=== PATIENT | male | born 1945 | race Caucasian/White ===

== ENCOUNTER 2023-06-11 13:25 | Outpatient (CLI) | payer MEDICARE, BC, SELFPAY ==
--- NOTE | 2023-06-11 13:15 | DI.RAD_ITS ---
Exam(s) XR KNEE RT 4V AP,LAT,KIKE,PAT EXAM: XR KNEE RT 4V AP,LAT,KKIE,PAT CLINICAL HISTORY: bilateral knee pain. TECHNIQUE: 2D digital imaging was performed of the right knee. Four views obtained. Merchant, AP, la teral and PA tunnel views were obtained. COMPARISON: CR XR KNEE LT 4V AP,LAT,KIKE,PAT from 06/11/2023 FINDINGS: BONES: No acute fracture is present. No bony destructive lesion is seen. JOINTS: There is marked narrowing of the patellofemoral joint. Osteophytes and subchondral cysts are also seen at the joint space. There is moderate narrowing of the medial femoral tibial joint. Ther e is a small joint effusion. SOFT TISSUE: Normal. IMPRESSION: Marked degenerative changes seen at the patellofemoral joint. DATA REPOSITORY: RADIATION DOSE DELIVERED:
--- NOTE | 2023-06-11 13:15 | DI.RAD_ITS ---
Exam(s) XR KNEE LT 4V AP,LAT,KIKE,PAT EXAM: XR KNEE LT 4V AP,LAT,KIKE,PAT CLINICAL HISTORY: bilateral knee pain. TECHNIQUE: 2D digital imaging was performed of the left knee. Four images were obtained. Merchant, AP, lateral and PA tunnel views were obtained. COMPARISON: No exams were available for comparison FINDINGS: BONES: No acute fracture is present. No bony destructive lesion is seen. JOINTS: There is moderate narrowing of the medial femoral tibial joint. There is calcium seen in the lateral femoral tibial joint consistent with chondrocalcinosis. There is marked narrowing of the pa tellofemoral joint. Osteophytes are seen in the knee predominantly involving the posterior patella a nd the lateral femoral tibial joint. There is a small joint effusion. SOFT TISSUE: Vascular calcifications are present. IMPRESSION: Marked osteoarthritis of the left knee. DATA REPOSITORY: RADIATION DOSE DELIVERED:
== END 2023-06-11 13:26 | disposition home or self-care (01) ==
LOC: DIORS 13:25
PROVIDERS: PCP Physician Assistant Medical; Referring Provider Physician Assistant Medical; Visit Provider Student in an Organized Health Care Education/Training Program
DX: M17.11 Unilateral primary osteoarthritis, right knee; M17.12 Unilateral primary osteoarthritis, left knee
CPT/HCPCS: 99204; 73564

== ENCOUNTER 2023-06-22 09:15 | Outpatient (CLI) | payer MEDICARE, BC, SELFPAY ==
--- NOTE | 2023-06-22 08:30 | DI.RAD_ITS ---
Exam(s) XR STANDING ALIGNMENT EXAM: XR STANDING ALIGNMENT CLINICAL HISTORY: PRE OP L TKA. TECHNIQUE: 2D digital imaging was performed. Standing AP views were performed from the pelvis throu gh the ankles. COMPARISON: CR XR KNEE RT 4V AP,LAT,KIKE,PAT from 06/11/2023 CR XR KNEE LT 4V AP,LAT,KIKE,PAT from 06/11/2023 FINDINGS: Exam is limited by under penetration. Bulb buckle projects over the left pelvis, partially obscuring the visualization of the left hip joint. BONES: No acute fracture is present. No bony destructive lesion is seen. Leg length discrepancy: No significant overall leg length discrepancy. JOINTS: Knees: Severe narrowing of the left medial femoral tibial joint space causing varus angulatio n. [id number] narrowing of the medial femoral tibial joint of the right knee. The ankle joints are unremarkable. The hip joints are unremarkable. SOFT TISSUE: Normal. IMPRESSION: Severe degenerative changes degenerative changes of the medial femoral tibial joint of the left knee. . No significant leg length discrepancy. DATA REPOSITORY: RADIATION DOSE DELIVERED:
== END 2023-06-22 09:16 | disposition home or self-care (01) ==
LOC: DIORS 06-25 15:59
PROVIDERS: PCP Physician Assistant Medical; Visit Provider Physician Assistant
DX: M17.12 Unilateral primary osteoarthritis, left knee (principal); Z01.818 Encounter for other preprocedural examination
CPT/HCPCS: 77073

== ENCOUNTER 2023-07-18 07:17 | Observation (INO) | payer MEDICARE, BC, SELFPAY ==
[2023-07-18] VITALS (16 sets, daily range): BP systolic 132–189; BP diastolic 48–86; PULSE 61–94; RESP 14–23; TEMP 36.3–36.9; O2SAT 90–97; BMI 42.0
[2023-07-18] MEDS: Lactated Ringers 1,000 ML 80 ML IV (07:48)
[2023-07-18] MEDS: Acetaminophen 500 MG TAB 1000 MG PO ×3 (07:49→20:25)
[2023-07-18] MEDS: Gabapentin 300 MG CAP PO ×2 (07:49→20:25)
[2023-07-18] MEDS: Celecoxib 200 MG CAP 400 MG PO (07:49)
--- NOTE | 2023-07-18 08:06 | W.ANESPRE ---
General Info Date of Service Date Performed: 07/18/23 Height: 5 ft 9 in Weight: 129.3 kg Body Mass Index (BMI): 42.0 Surgical Procedure: Operation Date: 07/18/23 09:25 Proposed Procedure Side Surgeon p Knee Total Arthroplasty, Cementless CR Left Chris Caceres MD Meds Allergies and Home Medications Allergies Allergy/AdvReac Type Severity Reaction Status Date / Time simvastatin Allergy Unknown Other (See Verified 07/18/23 07:16 Comment) droperidol Allergy Other (See Verified 07/18/23 07:16 Comment) haloperidol Allergy Itching Verified 07/18/23 07:16 Home Medication Medication Instructions Recorded ketoconazole 2 % topical cream 1 applic topical DAILY 11/23/21 omeprazole 20 mg capsule,delayed 20 mg PO DAILY 11/23/21 release amlodipine 10 mg tablet 10 mg PO DAILY 05/16/23 cetirizine 10 mg tablet 10 mg PO DAILY PRN 05/16/23 lisinopril 40 mg tablet 40 mg PO DAILY 05/16/23 mirabegron 25 mg tablet,extended 25 mg PO DAILY 05/16/23 release 24 hr (Myrbetriq) red yeast rice 600 mg capsule 1,200 mg PO DAILY 05/16/23 tamsulosin 0.4 mg capsule 0.4 mg PO DAILY 05/16/23 garlic 300 mg capsule 600 mg PO DAILY 06/06/23 metformin 1,000 mg tablet 500 mg PO DAILY 06/11/23 metoprolol succinate 50 mg 50 mg PO DAILY 06/11/23 tablet,extended release 24 hr potassium chloride 20 mEq 20 meq PO DAILY 06/11/23 tablet,extended release(part/cryst) loratadine 10 mg tablet 10 mg PO DAILY 06/22/23 metoprolol succinate 25 mg 25 mg PO DAILY 06/22/23 tablet,extended release 24 hr Current Visit Medications: Current Medications Generic Name Dose Route Start Last Admin Trade Name Freq PRN Reason Stop Dose Admin Acetaminophen 1,000 mg 07/18/23 06:00 07/18/23 07:49 Acetaminophen 500 Mg Tab PO 07/18/23 23:59 1,000 mg PREOP MACRINA Administration Celecoxib 400 mg 07/18/23 06:00 07/18/23 07:49 Celecoxib 200 Mg Cap PO 07/18/23 23:59 400 mg PREOP MACRINA Administration Gabapentin 300 mg 07/18/23 06:00 07/18/23 07:49 Gabapentin 300 Mg Cap PO 07/18/23 23:59 300 mg PREOP MACRINA Administration Ringer's Solution 1,000 mls @ 80 mls/hr 07/18/23 06:00 07/18/23 07:48 IV 07/18/23 23:59 80 mls/hr INFUSION MACRINA Administration Cefazolin Sodium 3,000 mg/ 100 mls @ 200 mls/hr 07/18/23 06:00 Sodium Chloride IVPB 07/18/23 23:59 PREOP MACRINA Tranexamic Acid/Sodium Chloride 1,000 mg in 100 mls @ 600 mls/hr 07/18/23 06:00 IVPB 07/18/23 23:59 PREOP MACRINA IV Miscellaneous Supplies 1 each 07/18/23 06:00 Iv Access IV 07/18/23 23:59 DIRECTED MACRINA Sodium Chloride 0 ml 07/18/23 06:00 Normal Saline Flush 10 Ml Syr IV 07/18/23 23:59 PRN PRN Sodium Chloride 0 ml 07/18/23 06:00 Normal Saline 10 Ml Vial IJ 07/18/23 23:59 DIRECTED PRN Sterile Water 0 ml 07/18/23 06:00 Water,Injection,Sterile 10 Ml Vial IJ 07/18/23 23:59 DIRECTED PRN PFSH Active Problems Active Problems: Problem Status Onset Code Localized osteoarthritis of left knee M17.12 Localized osteoarthritis of right knee M17.11 VELA (dyspnea on exertion) R06.09 Aortic regurgitation I35.1 Type 2 diabetes mellitus E11.9 Metabolic syndrome X E88.810 Lumbosacral radiculopathy M54.[address] elevation myocardial infarction (STEMI) I25.2 Heart murmur, systolic R01.1 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 states last time i got stuck in the back, nan been sick every since, i was down in [place], and i had encephalopathy, even though they told me it didn't do that, i think it had something to do with it Surgical History Surgical History H/O cataract extraction Tobacco Smoking/Tobacco Use Status: Former Tobacco Use Alcohol Alcohol Intake: current Alcohol intake frequency: a few times a month Substance Use Substance use: Never Substance use type: does not use Vital Signs and Lab Results Vital Signs Most Recent Vital Signs in EMR: Most Recent Vital Signs Temp Pulse Resp BP Pulse Ox 36.7 C 66 20 165/48 H 95 07/18/23 07:42 07/18/23 07:42 07/18/23 07:42 07/18/23 07:42 07/18/23 07:42 Point of Care Results Point of Care Results: Finger Stick Blood Glucose 125 07/18/23 07:37 Lab Results Blood Type / Crossmatch: No Data to Display Complete Blood Count: No Data to Display Complete Metabolic Panel: No Data to Display Liver Function Panel: No Data to Display Coagulation Panel: No Data to Display Cardiac Panel: No Data to Display Arterial Blood Gas: No Data to Display Venous Blood Gas: No Data to Display Pancreas Panel: No Data to Display Thyroid Panel: No Data to Display Infectious Disease: No Data to Display Blood Cultures: No Data to Display Toxicology Panel: No Data to Display Imaging and Studies Imaging and Studies Study information below may be from another EMR and interpreted by another provider. Please see original notes in EMR for more complete details. Echocardiogram Summary: 02/20/23: EF 65%, Mild to moderate AR. Anesthesia Assessment and Plan Anesthesia History Personal History: Other Family History: No Family History of Anesthesia Complications Exercise Tolerance Exercise Tolerance: Metabolic Equivalents>4 Pertinent Negatives Pertinent Negatives: No Symptoms of GERD, No Major Pulmonary Symptoms or Complaints and No History of CVA/TIA Cardiac & Pulmonary Exam Cardiac Exam: Normal S1/S2 Heart Sounds Pulmonary Exam: Clear Bilateral Breath Sounds Implantable Cardiac Device Does patient have a Pacemaker or an ICD?: No Airway Exam Known Difficult Airway: No Mallampati Class: 2 Mouth Opening: Normal (> 3cm) Thyromental Distance: Less than 3 cm Neck Range of Motion: Full ROM Neck Circumference: Normal Teeth Condition: Normal Dentition ASA Classification ASA Score: ASA 3 Emergency Case?: No NPO Status NPO Status: NPO Clears >2 hours, Solids >8 hours Anesthesia Plan Resuscitation Status: Full Code Anesthesia Technique: General Anesthesia Airway Planned: Endotracheal Tube Pain Management: Surgeon and patient request nerve block Monitors Used: Standard Monitors
[2023-07-18] MEDS: ceFAZolin 3,000 MG in Normal Saline 100 ML 200 MG IVPB (08:54)
[2023-07-18] MEDS: TRANEXAMIC ACID/SOD. CHL. 1,000 MG/100 ML BAG 600 MG IVPB (09:11)
--- NOTE | 2023-07-18 09:29 | W.ANESNERVE ---
Nerve Block Single Injection Procedure Date and Time Date Performed: 07/18/23 Procedure Start: 08:41 Location Where Procedure Performed Procedure Location: Day Surgery Unit Reason Performed: Postoperative Analgesia Requesting Provider: Dharmesh Dudley Timeout Performed Timeout Performed: Yes Monitoring Used ECG, Blood Pressure, SpO2 and See EMR for corresponding vital signs Sterility Sterility: Hand Hygiene, Surgical Cap, Surgical Mask, Sterile Gloves and Chlorhexidine Sedation Given During Procedure Sedation Given (Indicate Dose Given): No Sedation given Patient Mental Status Patient Mental Status: Awake Nerve Block 1st Nerve Block: Laterality: Left Block Type: Adductor Canal Ultrasound Image Saved?: Yes Needle / Catheter Used: 100mm SonoPlex II Local Anesthetic Bolus (Indicate Dose Given): Lidocaine used for local infiltration of skin, Injected in 3-5ml increments after negative blood aspiration and Bupivacaine 0.25% Dose:: 20ml Additives (Indicate Dose Given): None Ultrasound: Sterile probe cover and gel used Nerve Stimulator: Not Used Paresthesia: None Procedure Tolerated: No Complications and Patient tolerated well Procedure Outcome: Successful Performed By: Pino Giang
--- NOTE | 2023-07-18 10:49 | ROE_ITS ---
Date of service: 07/18/23 Time of Service: 09:20 Operative Note Operative Note DATE OF PROCEDURE: 07/18/23 PRE-OP DIAGNOSIS: Left Knee Osteoarthritis POST-OP DIAGNOSIS: same PROCEDURE: Left Total Knee Replacement SURGEON: Chris Caceres GRILL PREP COOK: Mellisa Schreiber ANESTHESIA TYPE: Spinal Refer to Anesthesia Record ESTIMATED BLOOD LOSS: 200 PATHOLOGY: none sent TOURNIQUET TIME: 0 COMPLICATIONS: None Patient was transported to: PACU Patient's condition: stable Implants: 1. Depuy Attune Cementless Cruciate Retaining Femoral Component, Size 8 2. Depuy Attune Cementless Fixed Bearing Tibial Component, Size 7 3. Depuy Attune 8x7 CR/FB Poly 4. Depuy Attune Patellar Component, Size 38 Indications: I have seen Jaleel in clinic for symptoms of knee arthritis, confirmed with radiographic findings. He has exhausted nonoperative methods and was having significant limitations in daily function and desired better function and less pain. I discussed the technical details of a knee replacement. I explained the risks of the procedure to include, but not limited to, bleeding, infection, pain, stiffness, fracture, damage to nerves and vessels, damage to muscles and tendons, loosening, need for repeat procedure, blood clot and cardiopulmonary demise. Despite these risks, Michael elected to proceed. Findings: There was significant signs of arthritis throughout the knee with dense synovitis and a large effusion. Procedure Description: Michael was greeted in the preoperative holding area where the correct side was identified and marked. The consent was reviewed with the patient and signed. The history and physical was updated. All questions were answered. Preoperative medications were administered: Acetaminophen 1000mg, Celebrex 400mg, and Gabapentin 300mg. An adductor canal block was then administered by the anesthesia team in the PACU. He was taken back to the operating room. A general anesthestic was then administered. The patient was placed into the supine position on the operating room table. A nonsterile tourniquet was placed high onto the leg but only used for cementing. Posts were placed for positioning during the procedure. All bony prominences were well padded. Prophylactic antibiotics in the form of Cefazolin were administered. 1g of Tranxemic Acid was given intravenously within 30 minutes of incision. The left leg was then prepped with Chloraprep and draped in a standard fashion with impervious stockinette. A second prep with Chloraprep was performed prior to application of Iodine impregnated skin protection. A timeout to confirm correct identity, side and site, procedure, allergies, anesthesia, and medical concerns was performed. With the knee in some flexion, a midline incision was made overlying the knee. Full thickness skin flaps were raised once the extensor mechanism was encountered. These were raised medially and laterally. Any bleeding was controlled with electrocautery. Once the extensor mechanism was fully exposed, a medial parapatellar arthrotomy was performed in a flexed position. All bleeding from the arthrotomy and the geniculate arteries was coagulated. A medial subperiosteal peel was performed with electrocautery to the midcoronal plane. The fat pad was removed while keeping the patellar tendon protected. The anterior distal femur synovium was removed for later visualization. The ACL and PCL were resected and the anterior horn of the lateral meniscus was transected. The knee was then flexed with the patella everted. Large osteophytes from the tibia were removed. Large osteophytes from the femur were removed. Using a step drill, and based on preoperative templating, the femoral canal was entered. This was done with a step drill without any difficulty. The intramedullary distal femoral cut guide was inserted, set to a 6 degree valgus cut and 9mm cut thickness. The distal femoral cut guide was then held in position and pinned. With the soft tissues protected, the distal cut was performed. This was passed over a few times to ensure a planar cut. I then turned attention to the tibia. The extramedullary guide was placed onto the leg. The distal aspect was slid medial to adjust for position of center of ankle and stay in line with shaft of the tibia. Approximately 3-5 degrees of posterior slope was kept in the proximal cutting guide. The center of the guide was aligned with the PCL. The stylus was used to assess cut thickness. The medial side, most involved side, was set for a 5mm cut, corresponding to 8mm laterally. This was then held in position and pinned into place with 2 additional pins and a cross pin for stability. The medial and lateral collateral ligaments were protected and the cut was performed. With this completed, it was assessed and noted to be of appropriate dimensions. The guide was removed. A spacer block was inserted and the knee was brought into extension. The 6mm spacer block provided full extens ion, without hyperextension and with stability of both the medial and lateral collateral ligaments was assessed. The pins from the femur and the tibia were then removed. The distal femur was then sized. The anterior stylus was placed onto the lateral ridge of the anterior femur. This indicated a size 8 femur. The external rotation of the guide was adjusted to 3 degrees to match the epicondyla r axis, perpendicular to [place]?s line. The 4-in-1 cutting guide was the placed. The posterior medial femur cut was evaluated and appeared of good thickness. The spacer block was inserted underneath the cutting guide and stability was confirmed in 90 degrees of flexion. An bipin wing was used to confirm appropriate position of the anterior cut to avoid notching. This cutting guide was ensured to be flush on the cut surface and then pinned into place with headed pins. While protecting the soft tissues, quad tendon, and collateral ligaments, the anterior and posterior cuts were performed with a saw. The central two pins were removed and the posterior and anterior chamfers were cut next. The notch-cutting guide was placed. This was pinned to lateralize the femoral component as much as possible while keeping it flush on the cut surface. This was then pinned into position. A reciprocating saw was used to make the notch cut. A rasp smoothed the cut surfaces. The medial and lateral menisci were removed. A trial femoral component was then inserted, impacted down to the cut surfaces, and the lug holes were drilled. A provisional trial tibial component was placed and the knee was brought through range of motion. The polyethylene was trialed until there was good flexion and extension with excellent stability to the medial and lateral collaterals. The patella was tracking without thumbs. A size 7mm polyethylene component provided the best range of motion and stability with less than 2mm gapping with medial and lateral stress and full extension without significant hyperextension. The tibial cut surface was fully exposed. The tibia was then sized as a 7. The tibia had been previously marked during trialing to correspond to the center of the tibial component to help with rotation. The trial was aligned to this mellisa, approximately rotated to the medial 1/3rd of the tibial tubercle. The trial was pinned into place. The tibia was prepared with a reamer and a keel punch and lug holes. The knee was then brought into extension and the patella was measured as 21mm. Using the patellar clamp and cut guide, this was resected to a flat surface with at least 13mm of thickness remaining. The size 38 patella fit the best. This was oriented and then clamped into position. The lugs were drilled. The trial components were removed. The final components were opened on the back table. The periosteal and capsular tissues, especially posteriorly, around the knee were then systematically injected with a periarticular cocktail consisting of 246mg of Ropivacaine, 0.5mg of Epinephrine, 0.08mg of Clonidine, and 30mg of Ketorolac, diluted to 100cc. On the back table, with the implants opened, the cement was mixed. One batch of high viscosity cement was prepared with vacuum assistance. After the cement was ready a small amount was placed on the cut surface of the patella and the patellar button was clamped into position and held. While the cement was hardening, the cementless knee components were placed. Starting with the tibial component, the tibia was subluxed anteriorly and the lug holes of the component were lined up. The tibia was then impacted with an impactor and mallet until the tibial component was in contact with the tibia. The final polyethylene component was inserted. Then, the femoral component was inserted. The lug holes were aligned and the component was impacted into position. The knee was irrigated with Surgiphor Betadine solution. This was allowed to sit in the knee for 3 minutes and then it was irrigated out with saline. After the cement had finally cured, approximately 15min, the clamp was removed from the patella and the knee was taken through range of motion. The patella had slight lateral tilt and therefore I performed a partial lateral capsule release allowing the patella to move slightly more medial. It was then tracking with a no-thumbs technique. The capsule was then reapproximated with a No. 1 Vicryl at multiple locations. The capsule was finally closed with a No. 2 Stratafix, barbed suture. The second dosing of 1g TXA was started. Deep tissues were then reapproximated with 0 Vicryl and 2-0 Vicryl. The skin was closed with a running 3-0 Monocryl in a subcuticular fashion. This was reinforced with skin glue. A Mepilex silver dressing was applied along with a [id number] MARÍA wrap. A CryoCuff was applied. Michael was transferred to the hospital bed without difficulty an suffering no apparent complication. Michael has a good prognosis. Physical therapy will start today and without restrictions, weight-bearing as tolerated. Aspirin 81mg BID will be used for DVT prophylaxis.
[2023-07-18] MEDS: fentaNYL 100 MCG/2 ML VIAL IVP (11:40)
--- NOTE | 2023-07-18 13:39 | IN_ITS ---
PT Notes Visit Reasons: OA L Knee Physical Therapy Inpatient Initial Evaluation Date: 07/18/2023 Referring Doctor: KERON Montes De Oca PT Orders: PT CONSULT: S/P Ortho Surgery Precautions: Fall. Standard. WBAT on the L LE with AD per Dr. Caceres. Patient Profile/Admitting Diagnosis: Patient is an 78-year-old male patient with degenerative joint disease of B knees and is S/P Left total knee arthroplasty on postoperative day 0. PMHX: Medical History Erectile dysfunction Bradycardia Surgical History H/O cataract extraction Social History/Home Situation: Lives alone in a private home with 4 steps to enter with rails on both sides. Modified independent with use of 5 wheeled walker for all mobility ADL performance prior to surgery. Equipment Owned/DME: [employer] Subjective: Reports 1/10 pain in the L knee at rest, some pain about 3-4/10 with weight bearing. Denied headache, chest pain, and lightheadedness throughout session. A little concerned that he has not had lunch but Nurse Payton came in to bring patient a sandwich. [facility] [place] [facility] ordered lunch for patient too upon PT's request. Objective: General Observation: Oxygen saturation and on 2 L/min via NC. Quiana wraps to left LE. Cryocuuff to left knee. TEDS to leg. Mental Status: Alert and oriented as to person, place, time, and purpose. Able to pay attention, focus, and respond appropriately. Pain: As above Vital Signs: 164/74 mmHg, 68 bpm, 95% on 2 L/min ROM: Right Lower Extremity: Hip flexion WFL. Hip abduction WFL. Knee flexion 20 degrees to 90 degrees. Ankle dorsiflexion to neutral only. Ankle plantarflexion WFL. Left Lower Extremity: Hip flexion WFL. Hip abduction WFL. Knee flexion 30 degrees to 90 degress. nkle dorsiflexion to neutral only. Ankle plantarflexion WFL. Strength: Right Lower Extremity: Hip flexors 4-/5. Hip abductors 4-/5. Knee flexors 3-/5. Knee extensors 3-/5. Knee extensors 3?/5. Ankle dorsiflexors /5. Ankle plantarflexors []/5. Left Lower Extremity: Hip flexors 4-/5. Hip abductors 4-/5. Knee flexors 3-/5. Knee extensors 3-/5. Knee extensors 3?/5. Ankle dorsiflexors /5. Ankle plantarflexors []/5. Bed Mobility/Transfers: Minimal cueing provided for use of B hands as needed for support, movement sequence, AD management, and posture to reduce fall risk and minimize pain report Supine to sit minimal assist Sit to stand from high bed minimal assist with FWW Sit to stand from bedside commode/low surface moderate assist Stand to sit minimal assist with FWW Bed to bedside commode minimal assist with FWW Bedside commode to bed minimal assist with FWW Bed to reclining chair minimal assist with FWW Gait: 6 small steps from bedside to bedside commode and then 8 small steps from bedside commode to bedside recliner using FWW and moderate verbal cueing for limb advancement, safety technique, AD management, and posture to reduce fall risk and minimize pain report. Balance: Static Sitting: Normal Dynamic Sitting: Normal Static Standing: Fair Dynamic Standing: Fair Special Tests: Mobility Limitations Standardized Measure [facility] AM-PAC 6 clicks Basic Mobility Inpatient Short Form: Raw Score: 17 CMS Score: 51% deficit Informed Consent/Education: Patient was instructed in purpose of PT consult and plan of care. Agreeable to proceed with established PT POC to achieve personal goals. ASSESSMENT: Performed limited mobility assessment as patient was so hungry has not had lunch yet. Required minimal assistance with getting up from bed and moderate assistance from low bedside commode. Lives alone and may not have ready help with needed mobility tasks. May benefit from short-term rehab to regain highest mobility level prior to D/C to home. Patient presents with clinical signs and symptoms consistent with current/admitting diagnoses that have resulted to mobility limitations, gait instability, generalized weakness, and overall ADL decline as demonstrated by the following impairment level findings: 1. Decreased strength to L/R knee major muscle groups 2. Impaired sitting/standing balance 3. Impaired activity tolerance 4. Limitation of joint range of motion in L/R knee 5. High BMI Impairments are contributing to the following functional limitations: 1. Decline in bed mobility skills 2. Decline in transfer skills 3. Difficulty with ambulation without assistive device and physical assistance 4. Increased completion time for mobility ADL performance 5. Increased risk for falls 6. Difficulty with managing steps alone safely Patient is assessed as a 38536 moderate complexity based on the following: History: 78-year-old male with past medical history as indicated above Examination: Demonstrable impairment in strength, balance, and mobility level with underlying impairments and functional limitations as exhibited above as well as deficit score of 51% utilizing the [facility] Mobility Inpatient Short Form Presentation: Evolving Decision Makin moderate complexity Goals: Goals X1 week 1. Supine-Sit independent 2. Sit-Supine independent 3. Sit-Stand independent 4. Stand-Sit independent with FWW 5. Bed-Chair independent with FWW 6. Chair-Bed independent with FWW 7. Independent gait on level surface with use of FWW for at least 300 feet without report of pain nor dyspnea 8. Independent stair negotiation while holding onto B rails for at least 5 steps without report of pain nor dyspnea 9. Independent with home exercise program 10. Good static and dynamic standing balance/tolerance Plan of Care/Treatment Plan: 1-2x/day, 7 days/week x 1 week. Plan of care has been reviewed with the [employer] providing the service under Physical Therapy direction. Initiate Physical Therapy intervention for pain management as needed, strengthening, bed mobility, transfers, gait, stairs, balance training, and use of assistive device. DISCHARGE RECOMMENDATIONS: [] Home with no services [] [] Home with services [specify] [] Home with outpatient PT [] [] SNF for continued rehabilitation [] [] [facility] [] [] SNF versus LTC based on ability to participate and progress [] [X] Short-term rehab vs. PT based on availability of caregiver at home and on progress towards goals TREATMENT CODE/TIME: 90533 x 20 minutes for 1 unit, 56365 x 30 minutes for 2 units (13:39-14:29). Thank you for the opportunity to participate in the care of this patient. Cinthia Johns PT, DPT, CLT [facility] [place], [place]
[2023-07-18] MEDS: ceFAZolin 1 GM/50 ML BAG IVPB ×2 (14:32→23:45)
--- NOTE | 2023-07-18 14:32 | W.ANESPOSTOP ---
Postoperative Evaluation Date, Time and Location Date Performed: 07/18/23 Time Performed: 14:32 Patient Location: Med/Surg Vital Signs Most Recent Imported Vital Signs: Most Recent Vital Signs Temp Pulse Resp BP Pulse Ox 36.7 C 68 16 164/74 H 95 07/18/23 13:35 07/18/23 13:35 07/18/23 13:35 07/18/23 13:35 07/18/23 13:35 Pain Score Most Recent Pain Score: Most Recent Pain Score Pain Level 4 07/18/23 13:35 Assessment Mental Status: Awake (Alert & Oriented to Patient Baseline) Airway and Respiratory Function: Patent airway with normal (patient baseline) respiratory exam Cardiovascular Function: Hemodynamically Stable Hydration Status: Adequately Hydrated Nausea & Vomiting: No Nausea or Vomiting Pain: Pain is tolerable per patient Peripheral Nerve Block: Regional nerve block not resolved at time of post operative discharge
[2023-07-18] MEDS: Normal Saline Flush 10 ML SYR IV (14:47)
[2023-07-18] MEDS: Insulin Aspart 300 UNITS/3 ML PEN SC (16:41)
[2023-07-18] MEDS: Normal Saline Flush 10 ML SYR (17:31)
[2023-07-18] MEDS: Celecoxib 200 MG CAP PO (20:25)
[2023-07-18] MEDS: Aspirin E.C. 81 MG TABEC PO (20:26)
[2023-07-19 00:30] VITALS: BP 126/48; PULSE 57; RESP 20; TEMP 37.7; O2SAT 95
[2023-07-19 04:32] VITALS: BP 139/54; PULSE 62; RESP 18; TEMP 37.5; O2SAT 93
[2023-07-19] MEDS: ceFAZolin 1 GM/50 ML BAG IVPB (06:31)
[2023-07-19 07:26] VITALS: BP 131/59; PULSE 65; RESP 17; TEMP 37.1; O2SAT 93
[2023-07-19] MEDS: Acetaminophen 500 MG TAB 1000 MG PO ×2 (08:20→13:42)
[2023-07-19] MEDS: amLODIPine 10 MG TAB PO (08:20)
[2023-07-19] MEDS: Mirabegron 25 MG TABCR PO (08:20)
[2023-07-19] MEDS: Omeprazole 20 MG CAPCR PO (08:21)
[2023-07-19] MEDS: Lisinopril 20 MG TAB 40 MG PO (08:21)
[2023-07-19] MEDS: Tamsulosin 0.4 MG CAPCR PO (08:21)
[2023-07-19] MEDS: Dexamethasone 4 MG TAB PO (08:22)
[2023-07-19] MEDS: Metoprolol CR 25 MG TABCR 75 MG PO (08:22)
[2023-07-19] MEDS: Aspirin E.C. 81 MG TABEC PO (08:22)
[2023-07-19] MEDS: Normal Saline Flush 10 ML SYR IVP (08:23)
[2023-07-19] MEDS: Loratidine 10 MG TAB PO (08:23)
[2023-07-19] MEDS: Celecoxib 200 MG CAP PO (08:23)
[2023-07-19] MEDS: Insulin Aspart 300 UNITS/3 ML PEN SC ×2 (08:24→12:27)
--- NOTE | 2023-07-19 09:19 | PT.INTREAT ---
PT Notes Visit Reasons: OA L Knee Date: 07/19/23 PRECAUTIONS: Fall. Standard. WBAT on the L LE with AD per Dr. Caceres. SUBJECTIVE: Pt in bed when approached for therapy this morning, pt agreed to participating with therapy. reports he wants to go home this afternoon. OBJECTIVE: ? PAIN: none VITALS: monitored by nursing Therapeutic Activities 56971: Direct one-on-one instruction in dynamic activities to improve functional performance. ?? BED MOBILITY/TRANSFERS? Rolling L/R: independent Supine-sit: ? independent? Sit-supine: ? independent? Sit-stand: ? Supervision? Stand-sit: ??Supervision ? Bed-Chair:? ?Supervision ? Chair-bed: Supervision Provided skilled cues and instruction on performance and technique throughout. Gait Training 92905: Direct one-on-one instruction and skilled instruction in: Employing an assistive device Modified weight-bearing status Movement sequencing Turning and movement with proper form Provided verbal cues for equipment management and technique Provided instruction in gait pattern Patient education regarding pacing and breathing techniques to maximize activity tolerance? GAIT? Assistive Device: ?FWW ? Weight bearing: WBAT LLE Assist: ? SBA ? Distance:?? 150'x2? Deviation: ?Antalgic ? STAIRS:? ? Step over gait pattern, bilateral handrail 6 steps x4, 4steps x6 SBA ? Therapeutic Exercises 73350: Direct one-on-one instruction in therapeutic exercises to develop strength, endurance, range of motion and flexibility. Exercises: Pt provided copy for HEP for guidance with exercises at home, pt able to complete HEP as per copy. Provided skilled instruction in proper exercise performance Provided skilled manual cues to facilitate proper muscle recruitment and/or form: ASSESSMENT:?pt able to ambulate without pain on level surface as well as on stairs, pt will be provided with FWW from ortho care for safety at home. PLAN: Continue with balance training, global strengthening and general conditioning for improved safety, mobility and activity tolerance until pt is ready for DC. TREATMENT CODE/TIME: 78989s2, 47310w5, 25mins (8:55-9:20am)
--- NOTE | 2023-07-19 11:26 | PDOC.CMIN ---
Date of service: 07/19/23 Time of Service: 11:34 Care Management Initial Assmt Initial Assessment REASON FOR HOSPITALIZATION:: OA L Knee PREVIOUS FUNCTIONAL STATUS/SOCIAL/FAMILY SUPPORTS:: Jaleel lives in [place] with his , Calli. He has one living son, who lives about a mile away from him and is very supportive. He is independent with ADL's at baseline, and transports via RCT. CURRENT FUNCTIONAL STATUS:: Jaleel was sitting up in his chair when CM met with him. He stated that he is doing well and is expecting to be discharged home this afternoon. He reported that he walked with PT and practiced stairs, and feels comfortable returning home. Per RN, his pain is well managed. Jaleel's son called while CM was in the room visiting; he stated that he would require RCT transport home via private vehicle. CM called his pharmacy to inquire about medication delivery; [facility] in [place] stated that his medications will be delivered to him tomorrow morning. CM will continue to follow. ADVANCE DIRECTIVES:: Not on file. Has patient been provided with info about the portal/API?: Yes Did the patient sign up for the portal?: No INSURANCE COVERAGE / FINANCIAL ISSUES:: [facility]. B/C federal. CURRENT HOME/COMMUNITY SERVICES/EQUIPMENT:: No current services. [facility]. PRIMARY CARE PHYSICIAN:: Yumiko Ochoa POTENTIAL DISCHARGE NEEDS:: Evaluations for further needs, follow up appointments. PATIENT/FAMILY EDUCATION NEEDS:: Review discharge instructions and limitations, discussion of self care needs including ask me three. ANTICIPATED BARRIERS TO DISCHARGE:: None identified. TRANSPORTATION:: Via private vehicle by RCT PLAN:: Anticipate Jaleel will return home once medically cleared with new orders for HH PT. His will be driven him home via private vehicle by [facility], [facility] He will follow up with his PCP and discharge plan of care. CM will continue to follow. PFSH All Active Problems Localized osteoarthritis of left knee (Acute) Localized osteoarthritis of right knee (Acute) VELA (dyspnea on exertion) (Acute) Aortic regurgitation (Acute) Type 2 diabetes mellitus (Acute) Metabolic syndrome X (Acute) Lumbosacral radiculopathy (Acute) History of ST elevation myocardial infarction (STEMI) (Acute) Heart murmur, systolic (Acute) Disorder of anterior pituitary (Acute) Obesity (Chronic) Hypertension (Chronic) GERD (gastroesophageal reflux disease) (Chronic) Hypercholesterolemia (Acute) Sensorineural hearing loss of both ears (Acute) Medical History Erectile dysfunction Bradycardia Surgical History H/O cataract extraction Social History Smoking/Tobacco Use Status: Former Tobacco Use Quit Date: 04/02/69 Smoking risk assessment performed?: Yes Alcohol Intake: current Alcohol Intake frequency: a few times a month Drug use: Never Substance use type: does not use Housing: house Do you feel safe at home: Yes Do you feel safe in your relationship?: Yes SDOH(Care Management) Screening Will the Patient Participate in the Screening?: Declined to provide
[2023-07-19 11:36] VITALS: BP 126/51; PULSE 56; RESP 16; TEMP 36.4; O2SAT 95
--- NOTE | 2023-07-19 13:12 | DSE_ITS ---
Date of service: 07/19/23 Time of Service: 13:12 Discharge Plan Disposition Patient Disposition: Home W/Home Health Services Condition: Good Discharge Details Reason For Visit: OA L Knee Admit Date/Time: 07/18/23 07:17 Admit Provider: Chris Caceres Attending Provider: Chris Caceres Primary Care Provider: Yumiko Ochoa Hospital Course Hospital Course: Patient was admitted to the medical/surgical floor following the procedure. The surgery was tolerated well without any notable medical, surgical, or anesthetic complications. Mobilization began postoperatively. He was voiding spontaneous ly. Vitals were stable. Physical therapy worked with the patient and was cleared for discharge home. No acute medical issues. Pain was controlled on oral regimen. Home Meds and New Rx's Prescriptions: New celecoxib 200 mg capsule 200 mg PO BID PRN (Reason: pain) Qty: 60 1RF aspirin 81 mg tablet,delayed release (DR/EC) 81 mg PO BID Qty: 60 0RF acetaminophen 500 mg tablet 1,000 mg PO Q8H PRN (Reason: pain) Qty: 90 3RF gabapentin 300 mg capsule 300 mg PO QHS Qty: 14 0RF oxycodone 5 mg tablet 5 mg PO Q6H PRN (Reason: pain) Qty: 12 0RF Continued garlic 300 mg capsule 600 mg PO DAILY potassium chloride 20 mEq tablet,ER particles/crystals 20 meq PO DAILY metoprolol succinate 50 mg tablet extended release 24 hr 50 mg PO DAILY metoprolol succinate 25 mg tablet extended release 24 hr 25 mg PO DAILY loratadine 10 mg tablet 10 mg PO DAILY omeprazole 20 mg capsule,delayed release(DR/EC) 20 mg PO DAILY ketoconazole 2 % cream 1 applic topical DAILY amlodipine 10 mg tablet 10 mg PO DAILY cetirizine 10 mg tablet 10 mg PO DAILY PRN lisinopril 40 mg tablet 40 mg PO DAILY Myrbetriq 25 mg tablet extended release 24 hr 25 mg PO DAILY red yeast rice 600 mg capsule 1,200 mg PO DAILY Rx Instructions: give with meal/snack tamsulosin 0.4 mg capsule 0.4 mg PO DAILY metformin 1,000 mg tablet 500 mg PO DAILY Discharge Instructions Additional Instructions: Total Knee Discharge Instructions Activity: The most important activity is to walk and to work on gentle motion (both flexion and extension). You should try to take short walks a few times a day. It is important that when resting you work on keeping the knee straight. Avoid putting a pillow behind the knee as this will encourage flexion. Work on range of motion exercises as provided by Physical Therapy. - Start outpatient physical therapy within 2 weeks. - You should wear the AKANKSHA hose on both legs for 2 weeks. You may remove these at night. You may also use any compression sock in place of the AKANKSHA hose. - Utilize [employer] to review exercises, see videos on exercises and obtain basic information pertaining to your surgery and your recovery. Dressing: Remove the Durga wrap by 2 days after your surgery and put on the AKANKSHA stocking given to you from the hospital. Keep the surgical dressing (underneath the DURGA wrap) in place for at least one week. After the first week it may be removed and replaced with light gauze and tape or nothing. The wound and dressing may get wet after 3 days but avoid soaking the dressing or otherwise it will need to be changed. Many people prefer covering the dressing with cling wrap (saran wrap) to minimize it from getting soaked. If it gets wet, just pat dry. If it starts to peel off then it will need to be changed. Medications: - You should take Tylenol and anti-inflammatory Celebrex as your primary pain control medications. If the Celebrex is too expensive or not covered, please call the office for another alternative (Advil/Ibuprofen or Naproxen/Aleve) - You have been prescribed a stronger pain medication Oxycodone for breakthrough pain, take as needed as prescribed. - You will continue your stomach acid reduction agent Omeprazole to help reduce stomach acid and reflux. - You have been prescribed Gabapentin to take at night for restlessness and nerve pain. - You will be taking Aspirin 81mg twice a day for DVT prevention unless instructed otherwise. - If you have constipation you should take Colace or Miralax (both [id number]). It takes most people 3-4 days to have a bowel movement. Follow-up: 2 weeks If you have any acute concerns or questions, please do not hesitate to contact the office at [phone]. You may contact Dr. Caceres with any questions after hours through the hospital at [phone] or on his cell phone at [phone]. 1. Encounter Date and Reason I certify that Jaleel Espitia was seen by Chris Caceres MD on 07/19/23 and that I had a [id number] encounter with this patient that meets the physician face to face encounter requirements. 2. Clinical Findings Supporting Skilled Need and Homebound Status I certify that home health services are medically necessary, include either intermittent jail and/or physical/speech therapy, and that this patient is homebound in that absences from the home require considerable and taxing effort and are infrequent or of short duration, or are attributable to the need to receive medical care. [X] (a) Attached documentation from encounter provides clinical findings supporting skilled need and homebound status (including what assistance patient requires to leave the home). The encounter with the patient was in whole, or in part, for the following medical condition, which is the primary reason for home health care: OA L Knee Prison: Michael would benefit from nursing due to multiple medical comorbidities and new medications following knee replacement surgery. Physical Therapy: Michael would benefit from physical and occupational therapy due to recent knee replacement surgery with notable weakness and gait abnormality. He may weight bear as tolerated with assistive devices. No restrictions. Speech Therapy: Homebound: Michael is unable to leave his home unassisted due to weakness and gait disturbance. 3. Certification and Authentication I certify that I composed the above information based on my clinical judgement relating to this patient's medical condition and, if applicable, clinical findings communicated to me by the NPP or inpatient physician who performed the Home Health Referral. All further orders will be obtained through Dr. Caceres Stand Alone Forms: Anesthesia Discharge Inst., Anes.Nerve Block Instructions Equipment/Supplies: Walker Activity:: Activity as Tolerated Remove Dressings/Wound Care:: Do Not Remove Shower/Bathe:: 72 hours and Cover Activity:: Activity as Tolerated Equipment/Supplies:: Walker Diet:: Carb Counting Discharge Orders Discharge Orders: Discharge Order (Routine); Ordered 07/19/23 Ordered By: Chris Caceres DS: Summary Time Spent with Patient providing and/or coordinating discharge services: Less than 30 minutes Status at Discharge Functional status at discharge: uses cane/walker Overall status at discharge: patient is progressing back to baseline Mental Status: mental status grossly normal Speech and Movement: speech and movement normal Mood: congruent mood Affect: normal affect Quality:SDOH Health Related Social Needs: No Data to Display Exam Narrative Exam Narrative: Sitting up in the chair. No acute distress. Alert and x 3. Left lower extremity dressings clean dry and intact. He is able straight leg raise. Range of motion is approximate 10 to 85 degrees. Intact ankle dorsiflexion, plantarflexion, great toe extension and flexion. Sensation intact to light touch of the deep and superficial peroneal nerve and tibial nerve. CR < 2 sec. Psych Mental Status: mental status grossly normal Speech and Movement: speech and movement normal Mood: congruent mood Affect: normal affect DS: Data Vitals/I&O Vitals and I&O: Vital Signs Temperature 36.4 C L 07/19/23 11:36 Temperature Source Tympanic 07/19/23 11:36 Pulse 56 L 07/19/23 11:36 Pulse Rhythm Regular 07/19/23 08:30 Respiratory Rate 16 07/19/23 11:36 Respiratory Effort Normal, Non-Labored 07/19/23 08:30 Respiratory Depth Normal 07/19/23 08:30 Respiratory Pattern Normal 07/19/23 08:30 Blood Pressure 126/51 L 07/19/23 11:36 Blood Pressure Mean 99 07/18/23 08:29 Pulse Oximetry 95 07/19/23 11:36 Respiratory End-tidal CO2 35 07/18/23 11:55 Oxygen Delivery Method Room Air 07/19/23 11:36 Oxygen Flow Rate 0 07/19/23 11:36 Pain Level 0 07/19/23 11:36 Comment 0838 Time out with Pino MAHARAJ and Loni LEVIN 0839 Local given by Pino MAHARAJ 0842 First dose of block given 0843 procedure end Pt denies metallic taste or ringing of ears, Pt shows no signs of distress, no concerns noted at this time 07/18/23 08:29 Intake & Output 07/18/23 07/19/23 07/19/23 23:59 11:59 23:59 Intake Total 450 / 1250 290 / 290 Output Total 975 / 1175 1400 / 1400 Balance -525 / 75 -1110 / -1110 Weight 129.3 kg Intake: IV 450 / 1250 50 / 50 Oral 240 / 240 Output: Urine 975 / 975 1400 / 1400 Other: Urine Color Yellow Yellow Urine Appearance Clear Clear Urine Odor Strong Voiding Methods Urinal Urinal PFSH All Active Problems Localized osteoarthritis of left knee (Acute) Localized osteoarthritis of right knee (Acute) VELA (dyspnea on exertion) (Acute) Aortic regurgitation (Acute) Type 2 diabetes mellitus (Acute) Metabolic syndrome X (Acute) Lumbosacral radiculopathy (Acute) History of ST elevation myocardial infarction (STEMI) (Acute) Heart murmur, systolic (Acute) Disorder of anterior pituitary (Acute) Obesity (Chronic) Hypertension (Chronic) GERD (gastroesophageal reflux disease) (Chronic) Hypercholesterolemia (Acute) Sensorineural hearing loss of both ears (Acute) Medical History Erectile dysfunction Bradycardia Surgical History H/O cataract extraction Social History Smoking/Tobacco Use Status: Former Tobacco Use Quit Date: 04/02/69 Smoking risk assessment performed?: Yes Alcohol Intake: current Alcohol Intake frequency: a few times a month Drug use: Never Substance use type: does not use Housing: house Do you feel safe at home: Yes Do you feel safe in your relationship?: Yes Time Spent with Patient Time Spent with Patient: <45 minutes Time was spent: preparing to see the patient(eg.review tests), obtaining and/or reviewing separately otained hiistory, ordering medications,tests, procedures, counseling the patient and care coordination
--- NOTE | 2023-07-19 14:18 | PTTR_ITS ---
PT Notes Visit Reasons: OA L Knee Physical Therapy Inpatient Treatment Note Date: 07/19/2023 Precautions: Fall. Standard. WBAT on the L LE with AD per Dr. Caceres. Subjective: 1-2/10 pain with walking but no lightheadedness reported. Agreeable to afternoon session. Objective: General Observation: TEDS to B legs. Mental Status: Alert and oriented as to person, place, time, and purpose. Able to pay attention, focus, and respond appropriately. Pain: As above Bed Mobility/Transfers: Minimal cueing provided for use of B hands as needed for support, movement sequence, AD management, and posture to reduce fall risk and minimize pain report Supine to sit stand by assist Sit to stand stand by assist with FWW Stand to sit stand by assist with FWW Bed to reclining chair stand by assist with FWW Gait: 200 feet with FWW and stand by assist and minimal verbal cueing for limb advancement, safety technique, AD management, and posture to reduce fall risk and minimize pain report. Balance: Static Sitting: Normal Dynamic Sitting: Normal Static Standing: Fair Dynamic Standing: Fair THERA EX: Trained patient with correct performance of exercises below to maximize motor control, joint flexibility, soft tissue extensibility of the L knee musculature: Access Code: [email or web address] URL: [email or web address] Date: 07/19/2023 Prepared by: Cinthia Johns Exercises - Supine Quad Set - 1 x daily - 7 x weekly - 1 sets - 10 reps - 5 hold - Supine Heel Slide - 1 x daily - 7 x weekly - 1 sets - 10 reps - 5 hold - Supine Ankle Pumps - 1 x daily - 7 x weekly - 1 sets - 10 reps - 5 hold - Small Range Straight Leg Raise - 1 x daily - 7 x weekly - 1 sets - 10 reps - 5 hold - Seated March - 1 x daily - 7 x weekly - 1 sets - 10 reps - 5 hold ASSESSMENT: Functional mobility level much improved today. Patient only requires the use of a FWW for all mobility ADL perofrmance to reduce fall risk and minimize pain report indoors. Plan of Care/Treatment Plan: Continue with skilled services post TKA. DISCHARGE RECOMMENDATIONS: [] Home with no services [] [X] Home with services. Patient will benefit from home health PT services in order to progress mobility level using least restrictive assistive ambulatory device, assess home safety, identify additional equipment needs, and establish a functional maintenance program that will increase ability of patient to remain at home. [] Home with outpatient PT [] [] SNF for continued rehabilitation [] [] [facility] Care [] [] SNF versus LTC based on ability to participate and progress [] TREATMENT CODE/TIME: 95013 x 25 minutes for 2 units (14:18-14:43).
--- NOTE | 2023-07-19 14:39 | PDOC.CMDIS ---
Date of service: 07/19/23 Time of Service: 14:39 LACE Index Scoring Tool Questions: Length of Stay (in days): 1 Was the patient admitted via the E.D.?: No Comorbidities: Previous M.I. and Diabetes w/o Complication E.D. Visits: 0 Answers: Total Score: 3 Risk of Readmission: Low Risk Care Management Discharge Plan Reason for Hospitalization: OA L Knee Discharge Plan: Jaleel will return home with new orders for HH PT through [facility]. B[facility]LEY called [facility] to inform them of his discharge. He will be driven home via [facility] private vehicle, coordinated by BEVERLEY, and his new prescription will be delivered by [facility] in [place], tomorrow morning. He will follow up with his PCP and discharge plan of care. He is happy to be going home. Patient/Family Education Needs: Review discharge instructions and limitations, discussion of self care needs including ask me three. Services Needed at Discharge: Home Health Care Services (HH PT) and Transportation ([facility] private vehicle) SDOH Health Related Social Needs: No Data to Display
== END 2023-07-19 15:33 | disposition home health service (06) ==
LOC: SUR 09:34 → MS 12:55
PROVIDERS: Admitting Provider Student in an Organized Health Care Education/Training Program; PCP Physician Assistant Medical; Visit Provider Student in an Organized Health Care Education/Training Program
PROC: (CPT 27447; principal; 2023-07-18 09:15)
DX: M17.12 Unilateral primary osteoarthritis, left knee (principal); E78.00 Pure hypercholesterolemia, unspecified; I10 Essential (primary) hypertension; H90.3 Sensorineural hearing loss, bilateral; K21.9 Gastro-esophageal reflux disease without esophagitis; E66.9 Obesity, unspecified; I25.2 Old myocardial infarction; M54.17 Radiculopathy, lumbosacral region; E11.9 Type 2 diabetes mellitus without complications; I35.1 Nonrheumatic aortic (valve) insufficiency; Z79.899 Other long term (current) drug therapy; Z68.41 Body mass index [BMI] 40.0-44.9, adult
CPT/HCPCS: 27447; C1776; 76942; 96361; 96365; 96366; 96372; 97110; 97162; 97530; G0378; J0360; J0665; J0690; J1100; J1815; J2405; J2704; J3010; J8540

== ENCOUNTER 2023-08-02 15:47 | Outpatient (CLI) | payer MEDICARE, BC, SELFPAY ==
--- NOTE | 2023-08-02 15:10 | DI.RAD_ITS ---
Exam(s) XR KNEE LT 1V XR STANDING ALIGNMENT EXAM: XR STANDING ALIGNMENT CLINICAL HISTORY: 1ST POST OP S/P L TKA. TECHNIQUE: 2D digital imaging was performed. Standing AP views were performed from the pelvis throu gh the ankles. COMPARISON: CR XR KNEE RT 4V AP,LAT,KIKE,PAT from 06/11/2023 CR XR STANDING ALIGNMENT from 06/22/2023 CR XR KNEE LT 1V from 08/02/2023 FINDINGS: Exam is limited by the patient's body habitus. The region of the pelvis is under penetrated. BONES: No acute fracture is present. No bony destructive lesion is seen. Leg length discrepancy: There is a mild overall leg length discrepancy with the right femoral head pr ojecting superior to the left by approximately 1 cm. JOINTS: Knees: A left knee prosthesis has been placed. The alignment appears satisfactory. Position ing is suboptimal. Moderate narrowing of the medial femoral tibial joint space of the right knee. P eriarticular spurring. The ankle joints are unremarkable. The hip joints are unremarkable. SOFT TISSUE: Normal. IMPRESSION: Left knee prosthesis. Degenerative changes of the right knee. Mild leg length discrepancy. DATA REPOSITORY: RADIATION DOSE DELIVERED:
== END 2023-08-02 15:48 | disposition home or self-care (01) ==
LOC: DIORS 15:47
PROVIDERS: PCP Physician Assistant Medical; Visit Provider Student in an Organized Health Care Education/Training Program
DX: Z96.652 Presence of left artificial knee joint (principal); Z47.1 Aftercare following joint replacement surgery
CPT/HCPCS: 73560; 77073

== ENCOUNTER → 2023-09-03 13:46 | Outpatient (BNVA) | payer MEDICARE, BC, SELFPAY | PROVIDERS: PCP Physician Assistant Medical; Referring Provider Physician Assistant Medical; Visit Provider Student in an Organized Health Care Education/Training Program | DX: Z47.1 Aftercare following joint replacement surgery (principal); Z96.652 Presence of left artificial knee joint ==

== ENCOUNTER → 2023-10-01 13:01 | Outpatient (BNVA) | payer MEDICARE, BC, SELFPAY | PROVIDERS: PCP Physician Assistant Medical; Referring Provider Physician Assistant Medical; Visit Provider Student in an Organized Health Care Education/Training Program | DX: Z47.1 Aftercare following joint replacement surgery (principal); Z96.652 Presence of left artificial knee joint ==

== ENCOUNTER → 2023-12-17 13:56 | Outpatient (BNVA) | payer MEDICARE, BC, SELFPAY | PROVIDERS: PCP Physician Assistant Medical; Referring Provider Physician Assistant Medical; Visit Provider Student in an Organized Health Care Education/Training Program | DX: M17.11 Unilateral primary osteoarthritis, right knee (principal); Z96.652 Presence of left artificial knee joint | CPT/HCPCS: 99213 ==

== ENCOUNTER 2024-02-07 03:37 | Outpatient (CLI) | payer MEDICARE, BC, SELFPAY ==
[2024-02-07 15:03] LABS: HGB 13.5 g/dL (13.5-17.5); MCH 31.3 pg (27.0-33.0); MCHC 33.8 % (32.0-36.0); MCV 93 fL (80-95); Platelet Count 173 10^3/uL (130-400); RBC 4.32 10^6/uL (4.36-5.78); RDW 12.3 % (11.8-14.1); RDW-SD 42.3 fL; WBC 11.02 10^3/uL (4.4-10.8)
[2024-02-07 15:26] LABS: Anion Gap 10.3 mmol/L (3-11); BUN 15 mg/dL (7-18); CO2 27.7 mmol/L (21.0-32.0); CREATININE 1.2 mg/dL (0.70-1.30); Calcium 9.7 mg/dL (8.5-10.1); Chloride 105 mmol/L (98-107); Estimated GFR 61.13 (mL/min/1.73m2); Glucose 106 mg/dL (74-106); Potassium 3.8 mmol/L (3.5-5.1); Sodium 143 mmol/L (136-145)
== END 2024-02-07 03:38 | disposition home or self-care (01) ==
LOC: LBO 03:37
PROVIDERS: PCP Physician Assistant Medical; Visit Provider Student in an Organized Health Care Education/Training Program
DX: Z01.818 Encounter for other preprocedural examination (principal); M17.11 Unilateral primary osteoarthritis, right knee
CPT/HCPCS: 36415; 80048; 85027

== ENCOUNTER 2024-02-12 13:54 | Observation (INO) | payer MEDICARE, BC, SELFPAY ==
[2024-02-12] VITALS (39 sets, daily range): BP systolic 132–185; BP diastolic 45–78; PULSE 52–77; RESP 14–26; TEMP 35.9–36.8; O2SAT 87–96; BMI 41.4
--- NOTE | 2024-02-12 10:39 | W.PREOPHP ---
Assessment and Plan Assessment and plan (1) Localized osteoarthritis of right knee: Status: Acute Assessment and plan: Michael is an 78-year-old who has known arthritis about the right knee. He is here today for right knee replacement. He has successful left knee replacement. He denies any acute issues. He feels he is doing well in regards to his overall health. Given his medical comorbidities and living situation, he will stay the night tonight. Once again I reviewed the technical details of knee replacement. I discussed risk to include bleeding, infection, pain, stiffness, damage nerves and vessels, damage to muscle tendons, fracture, hardware loosening, hardware failure, need for repeat procedures. Despite these risk, he elects to proceed. History of Present Illness History of Present Illness Chief Complaint: Right Knee Arthritis Narrative: Michael is an 78-year-old male who is status post left knee replacement. He has known right knee osteoarthritis. He is here to for right knee replacement. He has no ongoing shortness of breath or chest pain. He has been evaluated with recent echocardiogram last year. Review of Systems All systems reviewed & are unremarkable except as noted in HPI and below PFSH All Active Problems Localized osteoarthritis of right knee (Acute) VELA (dyspnea on exertion) (Acute) Aortic regurgitation (Acute) Type 2 diabetes mellitus (Acute) Metabolic syndrome X (Acute) Lumbosacral radiculopathy (Acute) History of ST elevation myocardial infarction (STEMI) (Acute) Heart murmur, systolic (Acute) Disorder of anterior pituitary (Acute) Obesity (Chronic) Hypertension (Chronic) GERD (gastroesophageal reflux disease) (Chronic) Hypercholesterolemia (Acute) Sensorineural hearing loss of both ears (Acute) Medical History Erectile dysfunction Bradycardia Surgical History 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/23) H/O cataract extraction Social History Smoking/Tobacco Use Status: Former Tobacco Use Quit Date: 04/02/69 Smoking risk assessment performed?: Yes Alcohol Intake: current Alcohol Intake frequency: a few times a month Drug use: Never Substance use type: does not use Housing: house Do you feel safe at home: Yes Additional Social history: lives alone Meds Allergies and Home Medications Allergies Allergy/AdvReac Type Severity Reaction Status Date / Time simvastatin Allergy Unknown Other (See Verified 02/12/24 10:39 Comment) droperidol Allergy Other (See Verified 02/12/24 10:39 Comment) haloperidol Allergy Itching Verified 02/12/24 10:39 Home Medications ?Medication ?Instructions ?Recorded ?Confirmed ?Type ketoconazole 2 % topical cream 1 applic topical DAILY 11/23/21 02/11/24 History omeprazole 20 mg capsule,delayed 20 mg PO DAILY 11/23/21 02/11/24 History release amlodipine 10 mg tablet 10 mg PO DAILY 05/16/23 02/11/24 History cetirizine 10 mg tablet 10 mg PO DAILY PRN 05/16/23 02/11/24 History lisinopril 40 mg tablet 40 mg PO DAILY 05/16/23 02/11/24 History mirabegron 25 mg tablet,extended 25 mg PO DAILY 05/16/23 02/11/24 History release 24 hr (Myrbetriq) red yeast rice 600 mg capsule 1,200 mg PO DAILY 05/16/23 02/11/24 History garlic 300 mg capsule 600 mg PO DAILY 06/06/23 02/11/24 History metoprolol succinate 50 mg 50 mg PO DAILY 06/11/23 02/11/24 History tablet,extended release 24 hr potassium chloride 20 mEq 20 meq PO DAILY 06/11/23 02/11/24 History tablet,extended release(part/cryst) loratadine 10 mg tablet 10 mg PO DAILY 06/22/23 02/11/24 History metoprolol succinate 25 mg 25 mg PO DAILY 06/22/23 02/11/24 History tablet,extended release 24 hr tamsulosin 0.4 mg capsule 0.8 mg PO DAILY 02/07/24 02/11/24 History acetaminophen 500 mg tablet 1,000 mg (2 x 500 mg) PO Q8H PRN 02/12/24 Rx pain #90 tabs aspirin 81 mg tablet,delayed 81 mg PO BID 30 days #60 tabs 02/12/24 Rx release celecoxib 200 mg capsule (Celebrex) 200 mg PO BID PRN #60 caps 11/12/24 Rx dexamethasone 4 mg tablet 4 mg PO DAILY #2 tabs 02/12/24 Rx docusate sodium 100 mg capsule 100 mg PO BID #30 caps 02/12/24 Rx (Colace) gabapentin 300 mg capsule 300 mg PO QHS #14 caps 02/12/24 Rx oxycodone 5 mg tablet 5 mg PO Q4H PRN #18 tabs 02/12/24 Rx Exam Const General: cooperative, healthy appearing, comfortable and no acute distress Resp Effort & Inspection: normal respiratory effort Auscultation: clear to auscultation bilaterally Cardio Rate: regular rate Rhythm: regular rhythm Results Last Vital Signs Temp 36.6 C 02/12/24 10:23 Pulse 69 02/12/24 10:23 Resp 18 02/12/24 10:23 BP 185/68 H 02/12/24 10:23 Pulse Ox 96 02/12/24 10:23
[2024-02-12] MEDS: Gabapentin 300 MG CAP PO (10:54)
[2024-02-12] MEDS: Celecoxib 200 MG CAP 400 MG PO (10:55)
[2024-02-12] MEDS: Acetaminophen 500 MG TAB 1000 MG PO ×2 (10:55→20:56)
--- NOTE | 2024-02-12 11:15 | ANES.PREOP_ITS ---
General Info Date of Service Date Performed: 02/12/24 Height: 5 ft 9 in Weight: 127.2 kg Body Mass Index (BMI): 41.4 Surgical Procedure: Operation Date: 02/12/24 12:55 Proposed Procedure Side Surgeon p Knee Total Arthroplasty Right Chris Caceres MD Meds Allergies and Home Medications Allergies Allergy/AdvReac Type Severity Reaction Status Date / Time simvastatin Allergy Unknown Other (See Verified 02/12/24 10:39 Comment) droperidol Allergy Other (See Verified 02/12/24 10:39 Comment) haloperidol Allergy Itching Verified 02/12/24 10:39 Home Medication ?Medication ?Instructions ?Recorded ketoconazole 2 % topical cream 1 applic topical DAILY 11/23/21 omeprazole 20 mg capsule,delayed 20 mg PO DAILY 11/23/21 release amlodipine 10 mg tablet 10 mg PO DAILY 05/16/23 cetirizine 10 mg tablet 10 mg PO DAILY PRN 05/16/23 lisinopril 40 mg tablet 40 mg PO DAILY 05/16/23 mirabegron 25 mg tablet,extended 25 mg PO DAILY 05/16/23 release 24 hr (Myrbetriq) red yeast rice 600 mg capsule 1,200 mg PO DAILY 05/16/23 garlic 300 mg capsule 600 mg PO DAILY 06/06/23 metoprolol succinate 50 mg 50 mg PO DAILY 06/11/23 tablet,extended release 24 hr potassium chloride 20 mEq 20 meq PO DAILY 06/11/23 tablet,extended release(part/cryst) loratadine 10 mg tablet 10 mg PO DAILY 06/22/23 metoprolol succinate 25 mg 25 mg PO DAILY 06/22/23 tablet,extended release 24 hr tamsulosin 0.4 mg capsule 0.8 mg PO DAILY 02/07/24 acetaminophen 500 mg tablet 1,000 mg (2 x 500 mg) PO Q8H PRN 02/12/24 pain #90 tabs aspirin 81 mg tablet,delayed 81 mg PO BID 30 days #60 tabs 02/12/24 release celecoxib 200 mg capsule (Celebrex) 200 mg PO BID PRN #60 caps 02/12/24 dexamethasone 4 mg tablet 4 mg PO DAILY #2 tabs 02/12/24 docusate sodium 100 mg capsule 100 mg PO BID #30 caps 02/12/24 (Colace) gabapentin 300 mg capsule 300 mg PO QHS #14 caps 02/12/24 oxycodone 5 mg tablet 5 mg PO Q4H PRN #18 tabs 02/12/24 Current Visit Medications: Current Medications Generic Name Dose Route Start Last Admin Trade Name Freq PRN Reason Stop Dose Admin Acetaminophen 1,000 mg 02/12/24 06:00 02/12/24 10:55 Acetaminophen 500 Mg Tab PO 02/12/24 18:00 1,000 mg PREOP MACRINA Administration Celecoxib 400 mg 02/12/24 06:00 02/12/24 10:55 Celecoxib 200 Mg Cap PO 02/12/24 18:00 400 mg PREOP MACRINA Administration Gabapentin 300 mg 02/12/24 06:00 02/12/24 10:54 Gabapentin 300 Mg Cap PO 02/12/24 18:00 300 mg PREOP MACRINA Administration Hydromorphone HCl 0.5 mg 02/12/24 07:40 Hydromorphone 1 Mg/Ml Syr IVP 03/13/24 07:39 Q2H PRN PRN Cefazolin Sodium 3,000 mg/ 100 mls @ 200 mls/hr 02/12/24 06:00 Sodium Chloride IV 02/12/24 18:00 PREOP MACRINA Tranexamic Acid/Sodium Chloride 1,000 mg in 100 mls @ 600 mls/hr 02/12/24 06:00 IVPB 02/12/24 18:00 PREOP MACRINA Ringer's Solution 500 mls @ 30 mls/hr 02/12/24 10:00 IV 03/13/24 09:59 INFUSION MACRINA Cefazolin Sodium/Dextrose 1 gm in 50 mls @ 100 mls/hr 02/12/24 08:00 Ancef Duplex IVPB 02/13/24 00:29 Q8H MACRINA IV Miscellaneous Supplies 1 each 02/12/24 06:00 Iv Access IV 03/12/24 23:59 DIRECTED MACRINA Oxycodone HCl 0 mg 02/12/24 07:40 Oxycodone 5 Mg Tab PO 03/13/24 07:39 Q3H PRN PRN Pain Sodium Chloride 0 ml 02/12/24 06:00 Normal Saline Flush 10 Ml Syr IV 03/12/24 23:59 PRN PRN Sodium Chloride 0 ml 02/12/24 06:00 Normal Saline 10 Ml Vial IJ 03/12/24 23:59 DIRECTED PRN Sterile Water 0 ml 02/12/24 06:00 Water,Injection,Sterile 10 Ml Vial IJ 03/12/24 23:59 DIRECTED PRN PFSH Active Problems Active Problems: Problem Status Onset Code Localized osteoarthritis of right knee Acute M17.11 VELA (dyspnea on exertion) Acute R06.09 Aortic regurgitation Acute I35.1 Type 2 diabetes mellitus Acute E11.9 Metabolic syndrome X Acute E88.810 Lumbosacral radiculopathy Acute M54.[address] elevation myocardial infarction (STEMI) Acute I25.2 Heart murmur, systolic Acute R01.1 Disorder of anterior pituitary Acute E23.7 Obesity Chronic E66.9 Hypertension Chronic I10 GERD (gastroesophageal reflux disease) Chronic K21.9 Hypercholesterolemia Acute E78.00 Sensorineural hearing loss of both ears Acute H90.3 Medical History Medical History Erectile dysfunction Bradycardia Medical History Comments:: Pt. states last time i got stuck in the back, nan been sick every since, i was down in [place], and i had encephalopathy, even though they told me it didn't do that, i think it had something to do with it Surgical History Surgical History 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/23) H/O cataract extraction Tobacco Smoking/Tobacco Use Status: Former Tobacco Use Alcohol Alcohol Intake: current Alcohol intake frequency: a few times a month Substance Use Substance use: Never Substance use type: does not use Vital Signs and Lab Results Vital Signs Most Recent Vital Signs in EMR: Most Recent Vital Signs Temp Pulse Resp BP Pulse Ox 36.6 C 69 18 185/68 H 96 02/12/24 10:23 02/12/24 10:23 02/12/24 10:23 02/12/24 10:23 02/12/24 10:23 Point of Care Results Point of Care Results: Finger Stick Blood Glucose 128 02/12/24 10:19 Lab Results Blood Type / Crossmatch: No Data to Display Complete Blood Count: White Blood Count 11.02 10^3/uL (4.4-10.8) H 02/07/24 14:55 Red Blood Count 4.32 10^6/uL (4.36-5.78) L 02/07/24 14:55 Hemoglobin 13.5 g/dL (13.5-17.5) 02/07/24 14:55 Hematocrit 40.0 % (40.0-50.0) 02/07/24 14:55 Platelet Count 173 10^3/uL (130-400) 02/07/24 14:55 Complete Metabolic Panel: Sodium 143 mmol/L (136-145) 02/07/24 14:55 Potassium 3.8 mmol/L (3.5-5.1) 02/07/24 14:55 Chloride 105 mmol/L (98-107) 02/07/24 14:55 Carbon Dioxide 27.7 mmol/L (21.0-32.0) 02/07/24 14:55 BUN 15 mg/dL (7-18) 02/07/24 14:55 Creatinine 1.2 mg/dL (0.70-1.30) 02/07/24 14:55 Est GFR (CKD-EPI 2020) 61.13 (mL/min/1.73m2) 02/07/24 14:55 Calcium 9.7 mg/dL (8.5-10.1) 02/07/24 14:55 Glucose 106 mg/dL (74-106) 02/07/24 14:55 Liver Function Panel: No Data to Display Coagulation Panel: No Data to Display Cardiac Panel: 2 No Data to Display Arterial Blood Gas: No Data to Display Venous Blood Gas: No Data to Display Pancreas Panel: No Data to Display Thyroid Panel: No Data to Display Infectious Disease: No Data to Display Blood Cultures: No Data to Display Toxicology Panel: No Data to Display Imaging and Studies Imaging and Studies Study information below may be from another EMR and interpreted by another provider. Please see original notes in EMR for more complete details. Echocardiogram Summary: 02/20/23: EF 65%, Mild to moderate AR. Anesthesia Assessment and Plan Anesthesia History Personal History: Other Family History: No Family History of Anesthesia Complications Exercise Tolerance Exercise Tolerance: Metabolic Equivalents>4 Pertinent Negatives Pertinent Negatives: No Symptoms of GERD, No Major Cardiovascular Symptoms or Complaints and No Major Pulmonary Symptoms or Complaints Cardiac & Pulmonary Exam Cardiac Exam: Normal S1/S2 Heart Sounds Pulmonary Exam: Clear Bilateral Breath Sounds Implantable Cardiac Device Does patient have a Pacemaker or an ICD?: No Airway Exam Known Difficult Airway: No Mallampati Class: 3 Mouth Opening: Normal (> 3cm) Thyromental Distance: Less than 3 cm Neck Range of Motion: Full ROM Neck Circumference: Normal Teeth Condition: Normal Dentition ASA Classification ASA Score: ASA 3 Emergency Case?: No NPO Status NPO Status: NPO Clears >2 hours, Solids >8 hours Anesthesia Plan Resuscitation Status: Full Code Anesthesia Technique: General Anesthesia Airway Planned: Endotracheal Tube Pain Management: Surgeon and patient request nerve block Monitors Used: Standard Monitors
[2024-02-12] MEDS: Lactated Ringers 500 ML 30 ML IV (11:16)
--- NOTE | 2024-02-12 11:54 | W.ANESNERVE ---
Nerve Block Single Injection Procedure Date and Time Date Performed: 02/12/24 Procedure Start: : Location Where Procedure Performed Procedure Location: Day Surgery Unit Reason Performed: Postoperative Analgesia Requesting Provider: Chris Caceres Timeout Performed Timeout Performed: Yes Monitoring Used ECG, Blood Pressure, SpO2 and See EMR for corresponding vital signs Sterility Sterility: Hand Hygiene, Surgical Cap, Surgical Mask, Sterile Gloves, Sterile Drape/Sheet and Chlorhexidine Sedation Given During Procedure Sedation Given (Indicate Dose Given): Versed IV Dose:: 1 mg Patient Mental Status Patient Mental Status: Sedate with meaningful communication Nerve Block 1st Nerve Block: Laterality: Right Block Type: Adductor Canal Ultrasound Image Saved?: Yes Needle / Catheter Used: 120mm SonoPlex II Local Anesthetic Bolus (Indicate Dose Given): Lidocaine used for local infiltration of skin, Injected in 3-5ml increments after negative blood aspiration and Bupivacaine 0.25% Dose:: 20 ml Additives (Indicate Dose Given): None Ultrasound: Sterile probe cover and gel used Nerve Stimulator: Supplement to Ultrasound use and No twitch or parasthesia noted < 0.5 mA Paresthesia: None Procedure Tolerated: No Complications and Patient tolerated well Procedure Outcome: Successful Procedure Comment: Difficult visualization. Performed By: Raquel Colvin
[2024-02-12] MEDS: ceFAZolin 3,000 MG in Normal Saline 100 ML 200 MG IV (12:02)
[2024-02-12] MEDS: TRANEXAMIC ACID/SOD. CHL. 1,000 MG/100 ML BAG 600 MG IVPB (12:13)
--- NOTE | 2024-02-12 12:15 | ROE_ITS ---
Date of service: 02/12/24 Time of Service: 12:15 Operative Note Operative Note DATE OF PROCEDURE: 02/12/24 PRE-OP DIAGNOSIS: Right Knee Osteoarthritis POST-OP DIAGNOSIS: same PROCEDURE: Right Total Knee Replacement SURGEON: Chris Caceres ASTRONOMY TEACHER: Batool Hawkins ANESTHESIA TYPE: General LMA/ETT Refer to Anesthesia Record ESTIMATED BLOOD LOSS: 350 PATHOLOGY: none sent TOURNIQUET TIME: 0 COMPLICATIONS: None Patient was transported to: PACU Patient's condition: stable Implants: 1. Depuy Attune Cementless Cruciate Retaining Femoral Component, Size 8 2. Depuy Attune Cementless Fixed Bearing Tibial Component, Size 8 3. Depuy Attune 8x7mm CR/FB Poly 4. Depuy Attune Patellar Component, Size 38 Indications: I have seen Jaleel in clinic for symptoms of knee arthritis, confirmed with radiographic findings. Jaleel has exhausted nonoperative methods and was having significant limitations in daily function and desired better function and less pain. I discussed the technical details of a knee replacement. I explained the risks of the procedure to include, but not limited to, bleeding, infection, pain, stiffness, fracture, damage to nerves and vessels, damage to muscles and tendons, loosening, need for repeat procedure, blood clot and cardiopulmonary demise. Despite these risks, Michael elected to proceed. Findings: There was significant signs of arthritis throughout the knee involving all 3 compartments with notable synovitis. Procedure Description: Michael was greeted in the preoperative holding area where the correct side was identified and marked. The consent was reviewed with the patient and signed. The history and physical was updated. All questions were answered. Preoperative medications were administered: Acetaminophen 1000mg, Celebrex 400mg, and Gabapentin 300mg. An adductor canal block was then administered by the anesthesia team in the DSU. He was taken back to the operating room. A general anesthestic was then administered. The patient was placed into the supine position on the operating room table. Posts were placed for positioning during the procedure. All bony prominences were well padded. Prophylactic antibiotics in the form of Cefazolin were administered. 1g of Tranxemic Acid was given intravenously within 30 minutes of incision. The right leg was then prepped with Chloraprep and draped in a standard fashion with impervious stockinette. A second prep with Chloraprep was performed prior to application of Iodine impregnated skin protection. A timeout to confirm correct identity, side and site, procedure, allergies, anesthesia, and medical concerns was performed. With the knee in some flexion, a midline incision was made overlying the knee. Full thickness skin flaps were raised once the extensor mechanism was encountered. These were raised medially and laterally. Any bleeding was controlled with electrocautery. Once the extensor mechanism was fully exposed, a medial parapatellar arthrotomy was performed in a flexed position. All bleeding from the arthrotomy and the geniculate arteries was coagulated. A medial subperiosteal peel was performed with electrocautery to the midcoronal plane. The fat pad was removed while keeping the patellar tendon protected. The anterior distal femur synovium was removed for later visualization. The ACL and PCL were resected and the anterior horn of the lateral meniscus was transected. The knee was then flexed with the patella everted. Large osteophytes from the tibia were removed. Large osteophytes from the femur were removed. There was notable synovitis. Using a step drill, and based on preoperative templating, the femoral canal was entered. This was done with a step drill without any difficulty. The intramedullary distal femoral cut guide was inserted, set to a 6 degree valgus cut and 9mm cut thickness. The distal femoral cut guide was then held in position and pinned. With the soft tissues protected, the distal cut was performed. This was passed over a few times to ensure a planar cut. I then turned attention to the tibia. The extramedullary guide was placed onto the leg. The distal aspect was slid medial to adjust for position of center of ankle and stay in line with shaft of the tibia. Approximately 3-5 degrees of posterior slope was kept in the proximal cutting guide. The center of the guide was aligned with the PCL. The stylus was used to assess cut thickness. The medial side, most involved side, was set for a 4mm cut. This was then held in position and pinned into place with 2 additional pins and a cross pin for stability. The medial and lateral collateral ligaments were protected and the cut was performed. With this completed, it was assessed and noted to be of appropriate dimensions. The guide was removed. A spacer block was inserted and the knee was brought into extension. The 6mm spacer block provided full extension, without hyperextension and with stability of both the medial and lateral collateral ligaments was assessed. The pins from the femur and the tibia were then removed. The distal femur was then sized. The anterior stylus was placed onto the lateral ridge of the anterior femur. This indicated a size 8 femur. The external rotation of the guide was adjusted to 3 degrees to match the epicondylar axis, perpendicular to [place]?s line. The 4-in-1 cutting guide was the placed. The posterior medial femur cut was evaluated and appeared of good thickness. The spacer block was inserted underneath the cutting guide and stability was confirmed in 90 degrees of flexion. An bipin wing was used to confirm appropriate position of the anterior cut to avoid notching. This cutting guide was ensured to be flush on the cut surface and then pinned into place with headed pins. While protecting the soft tissues, quad tendon, and collateral ligaments, the anterior and posterior cuts were performed with a saw. The central two pins were removed and the posterior and anterior chamfers were cut next. The notch-cutting guide was placed. This was pinned to lateralize the femoral component as much as possible while keeping it flush on the cut surface. This was then pinned into position. A reciprocating saw was used to make the notch cut. A rasp smoothed the cut surfaces. The medial and lateral menisci were removed. A trial femoral component was then inserted, impacted down to the cut surfaces, and the lug holes were drilled. A provisional trial tibial component was placed and the knee was brought through range of motion. The polyethylene was trialed until there was good flexion and extension with excellent stability to the medial and lateral collaterals. The patella was tracking without thumbs. A size 7mm polyethylene component provided the best range of motion and stability with less than 2mm gapping with medial and lateral stress and full extension without significant hyperextension. The tibial cut surface was fully exposed. The tibia was then sized as a 8. The tibia had been previously marked during trialing to correspond to the center of the tibial component to help with rotation. The trial was aligned to this mellisa, approximately rotated to the medial 1/3rd of the tibial tubercle. The trial was pinned into place. The tibia was prepared with a reamer and a keel punch and lug holes. The knee was then brought into extension and the patella was measured as 25mm. Using the patellar clamp and cut guide, this was resected to a flat surface with at least 13mm of thickness remaining. The size 38 patella fit the best. This was oriented and then clamped into position. The lugs were drilled. The trial components were removed. The final components were opened on the back table. The periosteal and capsular tissues, especially posteriorly, around the knee were then systematically injected with a periarticular cocktail consisting of 246mg of Ropivacaine, 0.5mg of Epinephrine, 0.08mg of Clonidine, and 30mg of Ketorolac, diluted to 100cc. On the back table, with the implants opened, the cement was mixed. One batch of high viscosity cement was prepared with vacuum assistance. After the cement was ready a small amount was placed on the cut surface of the patella and the patellar button was clamped into position and held. While the cement was hardening, the cementless knee components were placed. Starting with the tibial component, the tibia was subluxed anteriorly and the lug holes of the component were lined up. The tibia was then impacted with an impactor and mallet until the tibial component was in contact with the tibia. The final polyethylene component was inserted. Then, the femoral component was inserted. The lug holes were aligned and the component was impacted into position. The knee was irrigated with Surgiphor Betadine solution. This was allowed to sit in the knee for 3 minutes and then it was irrigated out with saline. After the cement had finally cured, approximately 15min, the clamp was removed from the patella and the knee was taken through range of motion. The patella was tracking with a no-thumbs technique. The capsule was then reapproximated with a No. 1 Vicryl at multiple locations. The capsule was finally closed with a No. 2 Stratafix, barbed suture. The second dosing of 1g TXA was started. Deep tissues were then reapproximated with 0 Vicryl and 2-0 Vicryl. The skin was closed with a running 3-0 Monocryl in a subcuticular fashion. This was reinforced with skin glue. A Mepilex silver dressing was applied along with a [id number] MARÍA wrap. A CryoCuff was applied. Michael was transferred to the hospital bed without difficulty an suffering no apparent complication. He has a good prognosis. Physical therapy will start today and without restrictions, weight-bearing as tolerated. Aspirin 81mg BID will be used for DVT prophylaxis.
[2024-02-12] MEDS: HYDROmorphone 1 MG/ML SYR IVP ×2 (14:33→14:43)
--- NOTE | 2024-02-12 15:05 | W.ANESPOSTOP ---
Postoperative Evaluation Date, Time and Location Date Performed: 02/12/24 Time Performed: 15:05 Patient Location: PACU Vital Signs Most Recent Imported Vital Signs: Most Recent Vital Signs Temp Pulse Resp BP Pulse Ox 36.7 C 72 23 138/60 94 02/12/24 15:00 02/12/24 11:27 02/12/24 11:27 02/12/24 11:27 02/12/24 11:27 Temp Pulse Resp BP Pulse Ox 36.7 C 56 L 16 149/60 H 92 02/12/24 15:00 02/12/24 15:01 02/12/24 15:01 02/12/24 15:01 02/12/24 15:01 Pain Score Most Recent Pain Score: Most Recent Pain Score Pain Level 4 02/12/24 15:00 Assessment Mental Status: Awake (Alert & Oriented to Patient Baseline) Airway and Respiratory Function: Patent airway with normal (patient baseline) respiratory exam Cardiovascular Function: Hemodynamically Stable Hydration Status: Adequately Hydrated Nausea & Vomiting: No Nausea or Vomiting Pain: Pain is tolerable per patient Peripheral Nerve Block: Regional nerve block not resolved at time of post operative discharge
[2024-02-12] MEDS: HYDROmorphone 1 MG/ML SYR 0.5 MG IVP (18:56)
[2024-02-12] MEDS: oxyCODONE 5 MG TAB PO (18:56)
[2024-02-12] MEDS: Aspirin E.C. 81 MG TABEC PO (20:56)
[2024-02-12] MEDS: ceFAZolin 1 GM/50 ML BAG IVPB (20:57)
[2024-02-12] MEDS: Normal Saline Flush 10 ML SYR IV (21:00)
[2024-02-12] MEDS: Nystatin POWDER 15 GM JAR TP (23:58)
[2024-02-13 03:55] VITALS: BP 129/62; PULSE 77; RESP 20; TEMP 36.7; O2SAT 93
[2024-02-13] MEDS: Normal Saline Flush 10 ML SYR IV ×2 (04:12→09:27)
[2024-02-13] MEDS: ceFAZolin 1 GM/50 ML BAG IVPB (04:12)
[2024-02-13 08:01] VITALS: BP 151/67; PULSE 66; RESP 18; TEMP 36.6; O2SAT 94
[2024-02-13] MEDS: Acetaminophen 500 MG TAB 1000 MG PO (09:25)
[2024-02-13] MEDS: Mirabegron 25 MG TABCR PO (09:25)
[2024-02-13] MEDS: Tamsulosin 0.4 MG CAPCR 0.8 MG PO (09:25)
[2024-02-13] MEDS: Dexamethasone 4 MG TAB PO (09:25)
[2024-02-13] MEDS: Lisinopril 20 MG TAB 40 MG PO (09:26)
[2024-02-13] MEDS: Metoprolol CR 25 MG TABCR PO (09:26)
[2024-02-13] MEDS: amLODIPine 10 MG TAB PO (09:26)
[2024-02-13] MEDS: Pantoprazole 40 MG TABCR PO (09:26)
[2024-02-13] MEDS: Aspirin E.C. 81 MG TABEC PO (09:26)
[2024-02-13] MEDS: Nystatin POWDER 15 GM JAR TP (09:27)
[2024-02-13] MEDS: Meloxicam 15 MG TAB PO (09:27)
[2024-02-13] MEDS: Potassium Chloride 20 MEQ TABCR PO (09:27)
--- NOTE | 2024-02-13 09:29 | PT.INIE ---
PT Notes Visit Reasons: Right knee DJD Physical Therapy Initial Evaluation Date: 02/13/2024 Referring Doctor: Dr. Caceres PT Orders: PT CONSULT: Status post Ortho surgery Precautions: WBAT RLE;TEDS x 2 weeks Patient Profile/Admitting Diagnosis: Patient is a 78-year-old male presenting status post elective right TKA secondary to OA under general anesthesia on 02/12/[address] Caceres. Postop patient required continuous supplemental oxygen. [facility] prior to discharge to home PMHX: Localized osteoarthritis of right knee (Acute) VELA (dyspnea on exertion) (Acute) Aortic regurgitation (Acute) Type 2 diabetes mellitus (Acute) Metabolic syndrome X (Acute) Lumbosacral radiculopathy (Acute) History of ST elevation myocardial infarction (STEMI) (Acute) Heart murmur, systolic (Acute) Disorder of anterior pituitary (Acute) Obesity (Chronic) Hypertension (Chronic) GERD (gastroesophageal reflux disease) (Chronic) Hypercholesterolemia (Acute) Sensorineural hearing loss of both ears (Acute) Medical History Erectile dysfunction Bradycardia Surgical History 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/23) H/O cataract extraction Social History/Home Situation: Patient resides alone in a single-family home with 4 steps to enter with bilateral rails/stair lift also. Patient independent ambulation with 4 wheeled walker or FWW. Independent ADLs and IADLs, patient drives. Equipment Owned/DME: Four-wheel walker, 2 front wheel walkers, chairlift on stairs to enter home, walk-in tub, tub seat Subjective: Patient reports he slept well and feels much better than he did last night. Patient reports his is currently residing in a long term facility in [place].Pt reports he has had HHPT and MOW in the past. Objective: General Observation: Patient presents semireclined in bed with Cryo/Cuff in place to right knee agreeable to participate in assessment. Patient no longer requiring supplemental oxygen O2 sat on room air 95% Mental Status: Alert and oriented x 4, cooperative, motivated Pain: Right knee 2/10 ROM: Right Upper Extremity: WNL Left Upper Extremity: WNL Right Lower Extremity:hip flexion 94 degrees limited by body habitus, hip abduction 15 degrees, knee flexion 5?93 degrees, ankle DF neutral Left Lower Extremity: WFL except hip extension to neutral and dorsiflexion to neutral Strength: Right Upper Extremity: 5/5 Left Upper Extremity: 5/5 Right Lower Extremity: Hip flexion: 3-/5; hip abduction: 3-/5; hip extension: 3-/5; knee extension: 3/5; knee flexion: 2+/5 ankle DF: 3/5 ; ankle PF: 3/5 Left Lower Extremity: hip3+/5, knee 4/5, ankle 4/5 Sensation: intact Bed Mobility/Transfers: Supine to sit supervision Sit to stand supervision Stand to sit supervision Bed to chair supervision with 4WW Gait: ambulate with 4WW supervision slow victor m with shortened step length, reduced right knee flexion during swing phase. impaired heel strike and early heel off. Balance: Static Sitting: Normal Dynamic Sitting: Fair+ Static Standing: Good with 4WW Dynamic Standing:Good - with 4WW Special Tests: Mobility Limitations Standardized Measure [facility] 6 clicks Basic Mobility Inpatient Short Form: Raw Score: 21 CMS Score: 28.97% Informed Consent/Education: Patient instructed in purpose of PT consult. Packet containing TKA exercise protocol has been given to patient. Education and training on initial set of exercises that can be done at home have been completed with patient. Assessment: Patient presents with clinical signs and symptoms consistent with current/admitting diagnoses that have resulted to mobility limitations, gait instability, generalized weakness, and impairment of motor control as demonstrated by the following impairment level findings: 1. Decreased strength to right knee major muscle groups 2. Impaired standing balance 3. Limitation of joint range of motion in right knee Impairments are contributing to the following functional limitations: 1. Inability to safely ambulate without assistive device 2. Increase completion time for mobility ADL performance 3. Increased fall risk Patient is assessed as a moderate complexity based on the following: History: 78-year-old male with impairment level findings, functional limitations, and past medical history as indicated above Examination: Demonstrable impairment in strength, balance, and mobility level with underlying impairments and functional limitations as documented above Presentation: Stable Decision Making: Moderate okay to see Goals: 1. independent ambulation with 4WW 100 feet 2. independent transfers with 4WW 3. independent HEP per TKA protocol Plan of Care/Treatment Plan: PT evaluation and 1-2 treatment session only for functional mobility training using recommended AD and for HEP instruction. DISCHARGE RECOMMENDATIONS: home with HHPT then Outpatient PT as scheduled TREATMENT CODE/TIME: 37847 x 20 mins for 1 unit; 06170 x 25 mins for 2 units/ [id number] Thank you for the opportunity to participate in the care of this patient. Pam Moseley PT Please sign an return this page within 30 days if you agree with the above POC. Thank you! Physician Signature Date [facility]
--- NOTE | 2024-02-13 09:30 | W.PM.DS.N ---
Date of service: 02/13/24 Time of Service: 09:30 DS: Diagnosis Discharge Diagnosis (1) Localized osteoarthritis of right knee: Status: Acute Discharge Plan Disposition Patient Disposition: Home W/Home Health Services Condition: Good Discharge Details Reason For Visit: Right knee DJD Admit Date/Time: 02/12/24 13:54 Admit Provider: Chris Caceres Attending Provider: Chris Caceres Primary Care Provider: Yumiko Ochoa Hospital Course Hospital Course: Patient was admitted to the medical/surgical floor following the procedure. The surgery was tolerated well without any notable medical, surgical, or anesthetic complications. Mobilization began postoperatively. He was voiding spontaneously, although incontinent as per baseline. Vitals were stable. Physical therapy worked with the patient and was cleared for discharge home with home health services. No acute medical issues. Pain was controlled on oral regimen. Home Meds and New Rx's Prescriptions: New aspirin 81 mg tablet,delayed release (DR/EC) 81 mg PO BID 30 Days Qty: 60 0RF acetaminophen 500 mg tablet 1,000 mg PO Q8H PRN Qty: 90 0RF Rx Instructions: Take two tablets up to every 8 hours as needed for pain dexamethasone 4 mg tablet 4 mg PO DAILY Qty: 2 0RF Rx Instructions: Take one tablet once daily for two days docusate sodium [Colace] 100 mg capsule 100 mg PO BID Qty: 30 0RF gabapentin 300 mg capsule 300 mg PO QHS Qty: 14 0RF Rx Instructions: Take one tablet at bedtime oxycodone 5 mg tablet 5 mg PO Q4H PRNQty: 18 0RF Rx Instructions: Take one tablet up to every 4 hours as needed for severe postoperative pain meloxicam 15 mg tablet 15 mg PO DAILY Qty: 30 1RF Rx Instructions: Take one tablet daily for pain and inflammation nystatin 100,000 unit/gram powder 1 applic topical DAILY Qty: 30 3RF Rx Instructions: Apply to affected skin folds. Continued garlic 300 mg capsule 600 mg PO DAILY potassium chloride 20 mEq tablet,ER particles/crystals 20 meq PO DAILY metoprolol succinate 50 mg tablet extended release 24 hr 50 mg PO DAILY metoprolol succinate 25 mg tablet extended release 24 hr 25 mg PO DAILY loratadine 10 mg tablet 10 mg PO DAILY omeprazole 20 mg capsule,delayed release(DR/EC) 20 mg PO DAILY ketoconazole 2 % cream 1 applic topical DAILY amlodipine 10 mg tablet 10 mg PO DAILY cetirizine 10 mg tablet 10 mg PO DAILY PRN lisinopril 40 mg tablet 40 mg PO DAILY Myrbetriq 25 mg tablet extended release 24 hr 25 mg PO DAILY red yeast rice 600 mg capsule 1,200 mg PO DAILY Rx Instructions: give with meal/snack tamsulosin 0.4 mg capsule 0.8 mg PO DAILY Discontinued celecoxib 200 mg capsule See Rx Instructions .ROUTE .COMPLEX Qty: 60 0RF Dose Instruction: TAKE 1 CAPSULE BY MOUTH TWICE A DAY NEEDED FOR PAIN Rx Instructions: TAKE 1 CAPSULE BY MOUTH TWICE A DAY NEEDED FOR PAIN acetaminophen 500 mg tablet See Rx Instructions .ROUTE .COMPLEX Qty: 90 0RF Dose Instruction: TAKE 2 TABLETS BY MOUTH EVERY 8 HOURS NEEDED FOR PAIN Rx Instructions: TAKE 2 TABLETS BY MOUTH EVERY 8 HOURS NEEDED FOR PAIN Discharge Instructions Additional Instructions: Total Knee Discharge Instructions Activity: The most important activity is to walk and to work on gentle motion (both flexion and extension). You should try to take short walks a few times a day. It is important that when resting you work on keeping the knee straight. Avoid putting a pillow behind the knee as this will encourage flexion. Work on range of motion exercises as provided by Physical Therapy. - Start outpatient physical therapy within 2 weeks. - You should wear the AKANKSHA hose on both legs for 2 weeks. You may remove these at night. You may also use any compression sock in place of the AKANKSHA hose. - Utilize [employer] to review exercises, see videos on exercises and obtain basic information pertaining to your surgery and your recovery. Dressing: Remove the Durga wrap by 2 days after your surgery and put on the AKANKSHA stocking given to you from the hospital. Keep the surgical dressing (underneath the DURGA wrap) in place for at least one week. After the first week it may be removed and replaced with light gauze and tape or nothing. The wound and dressing may get wet after 3 days but avoid soaking the dressing or otherwise it will need to be changed. Many people prefer covering the dressing with cling wrap (saran wrap) to minimize it from getting soaked. If it gets wet, just pat dry. If it starts to peel off then it will need to be changed. Medications: - You should take Tylenol and anti-inflammatory Meloxicam as your primary pain control medications. If the Meloxicam is too expensive or not covered, please call the office for another alternative (Advil/Ibuprofen or Naproxen/Aleve) - You have been prescribed a stronger pain medication Oxycodone for breakthrough pain, take as needed as prescribed. - You take a stomach acid reduction agent Omeprazole at baseline - continue with this medication to help reduce stomach acid and reflux. - You have been prescribed Gabapentin to take at night for restlessness and nerve pain. - You will be taking Aspirin 81mg twice a day for DVT prevention unless instructed otherwise. - You have also been prescribed Decadron to take to control post-operative nausea and pain. You will start this tomorrow. - If you have constipation you should take Colace (which has been prescribed) or Miralax (which is available [id number]). It takes most people 3-4 days to have a bowel movement. Follow-up: 2 weeks If you have any acute concerns or questions, please do not hesitate to contact the office at [phone]. You may contact Dr. Caceres with any questions after hours through the hospital at [phone] or on his cell phone at [phone]. 1. Encounter Date and Reason I certify that Jaleel Espitia was seen by Chris Caceres MD on 02/13/24 and that I had a [id number] encounter with this patient that meets the physician face to face encounter requirements. 2. Clinical Findings Supporting Skilled Need and Homebound Status I certify that home health services are medically necessary, include either intermittent senior care and/or physical/speech therapy, and that this patient is homebound in that absences from the home require considerable and taxing effort and are infrequent or of short duration, or are attributable to the need to receive medical care. [X] (a) Attached documentation from encounter provides clinical findings supporting skilled need and homebound status (including what assistance patient requires to leave the home). The encounter with the patient was in whole, or in part, for the following medical condition, which is the primary reason for home health care: Right knee DJD Halfway: Physical Therapy: Jaleel will benefit from home health physical therapy due to weakness and gait abnormalities following right knee replacement surgery. He is weightbearing as tolerated with assistive devices. He has no formal restrictions. Initial physical therapy should focus on activities of daily living, ambulation, and gentle range of motion. Speech Therapy: Homebound: Jaleel is unable to leave his home unassisted due to weakness and gait dysfunction. 3. Certification and Authentication I certify that I composed the above information based on my clinical judgement relating to this patient's medical condition and, if applicable, clinical findings communicated to me by the NPP or inpatient physician who performed the Home Health Referral. All further orders will be obtained through Dr. Chris Caceres Stand Alone Forms: Nursing Discharge Form Referrals: Chris Caceres MD [ [facility] STAFF PHYSICIAN] - 02/25/24 1:30 pm Activity:: Activity as Tolerated Equipment/Supplies:: Walker Diet:: As Tolerated Discharge Orders Discharge Orders: Discharge Order (Routine); Ordered 02/13/24 Ordered By: Chris Caceres Discharge Data Discharge Date/Time-TO BE ENTERED AT DEPARTURE: 02/13/24 13:20 DS: Summary Time Spent with Patient providing and/or coordinating discharge services: Less than 30 minutes Status at Discharge Functional status at discharge: uses cane/walker Overall status at discharge: patient is progressing back to baseline Mental Status: mental status grossly normal Speech and Movement: speech and movement normal Mood: congruent mood Affect: normal affect Quality:SDOH Health Related Social Needs: No Data to Display Exam Narrative Exam Narrative: Sitting up in the chair. NAD. AAOx3. RLE Dressing c/d/i. Able to SLR +ADF/APF/EHL/FHL SILT DP/SP/Tib Psych Mental Status: mental status grossly normal Speech and Movement: speech and movement normal Mood: congruent mood Affect: normal affect DS: Data Vitals/I&O Vitals and I&O: Vital Signs Temperature 37.0 C 02/13/24 11:13 Temperature Source Temporal Artery Scan 02/13/24 11:13 Pulse 65 02/13/24 11:13 Pulse Rhythm Regular 02/12/24 15:29 Pulse 64 02/12/24 15:01 Respiratory Rate 18 02/13/24 11:13 Respiratory Effort Normal 02/12/24 15:29 Respiratory Depth Normal 02/12/24 15:29 Respiratory Pattern Normal 02/12/24 15:29 Blood Pressure 160/72 H 02/13/24 11:13 Blood Pressure Mean 87 02/12/24 15:01 Blood Pressure Position Sitting 02/12/24 11:27 Pulse Oximetry 95 02/13/24 11:13 Respiratory End-tidal CO2 33 02/12/24 15:01 Oxygen Delivery Method Room Air 02/13/24 11:13 Oxygen Flow Rate 0 02/13/24 11:13 Pain Level 2 02/13/24 09:44 Comment Baseline RA 02/12/24 15:29 PFSH All Active Problems Localized osteoarthritis of right knee (Acute) VELA (dyspnea on exertion) (Acute) Aortic regurgitation (Acute) Type 2 diabetes mellitus (Acute) Metabolic syndrome X (Acute) Lumbosacral radiculopathy (Acute) History of ST elevation myocardial infarction (STEMI) (Acute) Heart murmur, systolic (Acute) Disorder of anterior pituitary (Acute) Obesity (Chronic) Hypertension (Chronic) GERD (gastroesophageal reflux disease) (Chronic) Hypercholesterolemia (Acute) Sensorineural hearing loss of both ears (Acute) Medical History Erectile dysfunction Bradycardia Surgical History 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
[2024-02-13] MEDS: Insulin Aspart 300 UNITS/3 ML PEN SC ×2 (09:35→11:50)
[2024-02-13 11:13] VITALS: BP 160/72; PULSE 65; RESP 18; TEMP 37; O2SAT 95
--- NOTE | 2024-02-13 11:23 | CMDISCH_ITS ---
Date of service: 02/13/24 Time of Service: 11:23 LACE Index Scoring Tool Questions: Length of Stay (in days): 1 Was the patient admitted via the E.D.?: No Comorbidities: Diabetes w/o Complication and Congestive Heart Failure E.D. Visits: 0 Answers: Total Score: 4 Risk of Readmission: Low Risk Care Management Discharge Plan Reason for Hospitalization: Right Knee DJD Discharge Plan: Discharge home via [facility] private vehicle. New HH PT orders will be sent to [facility]. Pt will follow up with community providers and his discharge plan of care as instructed. Jaleel will follow up with Dr. Caceres on 02/25/24, as scheduled. Patient/Family Education Needs: Review discharge instructions, limitations, medications and plan to follow up with community providers. Discuss ask me three. Services Needed at Discharge: Home Health Care Services (New HH PT, [facility]) and Transportation ([facility] private vehicle, coordinated by CM) SDOH Health Related Social Needs: No Data to Display
--- NOTE | 2024-02-13 13:23 | PT.INTREAT ---
PT Notes Visit Reasons: Right knee DJD Inpatient Physical Therapy Treatment Note [facility] Date: 02/13/2024 PRECAUTIONS:WBAT , SUBJECTIVE: Pt reports he feels good about going home and is looking forward to sleeping in his own bed OBJECTIVE: pt dressed waiting to go home? PAIN: knee2/10 Therapeutic Activities ([id number]): Direct one-on-one instruction in dynamic activities to improve functional performance. ? transfers independent with 4WW from 19 height and higher 3 trials ambulation with 4WW independent 50 feet x 2 including turns level surfaces. ASSESSMENT: patient demonstrates increased independence with ambulation with 4WW this PM as compared to morning. anticipate discharge to home this afternoon. Pt demonstrates safe use of 4 wheeled walker rate management during transfers and ambulation. PLAN: discharge to home TREATMENT CODE/TIME: 54980 x 1 unit 1307?1319 DISCHARGE RECOMMENDATION: Home with PT MOW
== END 2024-02-13 13:20 | disposition home health service (06) ==
LOC: MS 15:21
PROVIDERS: Admitting Provider Student in an Organized Health Care Education/Training Program; PCP Physician Assistant Medical; Visit Provider Student in an Organized Health Care Education/Training Program
PROC: (CPT 27447; principal; 2024-02-12 12:45)
DX: M17.11 Unilateral primary osteoarthritis, right knee (principal); E11.9 Type 2 diabetes mellitus without complications; E66.9 Obesity, unspecified; Z68.41 Body mass index [BMI] 40.0-44.9, adult; H90.3 Sensorineural hearing loss, bilateral; E78.00 Pure hypercholesterolemia, unspecified; K21.9 Gastro-esophageal reflux disease without esophagitis; I10 Essential (primary) hypertension; E23.7 Disorder of pituitary gland, unspecified; M54.17 Radiculopathy, lumbosacral region; I25.2 Old myocardial infarction
CPT/HCPCS: 27447; 64447; 96365; 96366; 97162; 97530; C1776; G0378; J0665; J0690; J1100; J1171; J1815; J2003; J2250; J2405; J2704; J8540

== ENCOUNTER 2024-02-25 15:50 | Outpatient (CLI) | payer MEDICARE, BC, SELFPAY ==
--- NOTE | 2024-02-25 13:15 | DI.RAD_ITS ---
Exam(s) XR KNEE RT 1V EXAM: XR KNEE RT 1V CLINICAL HISTORY: 1ST POST OP R TKA. TECHNIQUE: 2D digital imaging was performed. COMPARISON: CR XR KNEE LT 1V from 08/02/2023 CR XR STANDING ALIGNMENT from 02/25/2024 FINDINGS: Single lateral view The right knee prosthesis appears satisfactory on this lateral view. No fracture or loosening eviden t. No evidence of osteomyelitis. IMPRESSION: Stable satisfactory appearance DATA REPOSITORY: RADIATION DOSE DELIVERED:
--- NOTE | 2024-02-25 13:45 | DI.RAD_ITS ---
Exam(s) XR STANDING ALIGNMENT EXAM: XR STANDING ALIGNMENT CLINICAL HISTORY: 1ST POST OP S/P R TKA. TECHNIQUE: 2D digital imaging was performed. COMPARISON: CR XR STANDING ALIGNMENT from 08/02/2023 FINDINGS: 3 views There has been interval placement of a right knee prosthesis. There are now bilateral knee prosthese s. No evidence of fracture or loosening at the level the prostheses. There are symmetrical appearin g pseudo fractures at the junction of upper and mid thirds of both femurs which is most probably deja fact related to patient motion. Both hips appear unremarkable as do the sacroiliac joints. Ankles appear unremarkable. Bone density normal. No osseous lesions. IMPRESSION: Satisfactory appearance of bilateral knee prostheses. Motion artifact evident at the junction of the proximal and mid thirds of both femurs. DATA REPOSITORY: RADIATION DOSE DELIVERED:
== END 2024-02-25 15:51 | disposition home or self-care (01) ==
LOC: DIORS 15:50
PROVIDERS: PCP Physician Assistant Medical; Referring Provider Physician Assistant Medical; Visit Provider Student in an Organized Health Care Education/Training Program
DX: Z96.651 Presence of right artificial knee joint; Z47.1 Aftercare following joint replacement surgery
CPT/HCPCS: 99024; 73560; 77073

== ENCOUNTER → 2024-03-27 13:47 | Outpatient (BNVA) | payer MEDICARE, BC, SELFPAY | PROVIDERS: PCP Physician Assistant Medical; Referring Provider Physician Assistant Medical; Visit Provider Physician Assistant | DX: Z47.1 Aftercare following joint replacement surgery (principal); Z96.651 Presence of right artificial knee joint | CPT/HCPCS: 99024 ==

== ENCOUNTER → 2024-05-08 13:19 | Outpatient (BNVA) | payer MEDICARE, BC, SELFPAY | PROVIDERS: PCP Physician Assistant Medical; Referring Provider Physician Assistant Medical; Visit Provider Student in an Organized Health Care Education/Training Program | DX: Z47.1 Aftercare following joint replacement surgery (principal); Z96.651 Presence of right artificial knee joint | CPT/HCPCS: 99024 ==

== ENCOUNTER 2024-09-08 14:07 | Outpatient (CLI) | payer MEDICARE, BC, SELFPAY ==
--- NOTE | 2024-09-08 14:00 | DI.RAD_ITS ---
Exam(s) XR KNEE LT 2V AP,LAT EXAM: XR KNEE LT 2V AP,LAT CLINICAL HISTORY: ANNUAL F/U L TKA. TECHNIQUE: 2D digital imaging was performed. Two images were obtained. AP and lateral views were ob tained. COMPARISON: CR XR STANDING ALIGNMENT from 08/02/2023 CR XR KNEE LT 1V from 08/02/2023 CR XR STANDING ALIGNMENT from 02/25/2024 FINDINGS: BONES: There are stable post operative changes of a left total knee arthroplasty present. No fractur e or dislocation. JOINTS: The orthopedic hardware is in good position. No evidence of hardware loosening. SOFT TISSUE: Benign-appearing soft tissue calcifications are seen at the superior and inferior aspect s of the patella which appear chronic. IMPRESSION: Stable left total knee arthroplasty. DATA REPOSITORY: RADIATION DOSE DELIVERED:
== END 2024-09-08 14:08 | disposition home or self-care (01) ==
LOC: DIORS 14:07
PROVIDERS: PCP Physician Assistant Medical; Referring Provider Physician Assistant Medical; Visit Provider Student in an Organized Health Care Education/Training Program
DX: Z47.1 Aftercare following joint replacement surgery (principal); Z96.653 Presence of artificial knee joint, bilateral
CPT/HCPCS: 99213; 73560

== ENCOUNTER 2025-02-16 16:06 | Outpatient (CLI) | payer MEDICARE, BC, SELFPAY ==
--- NOTE | 2025-02-16 13:31 | DI.RAD_ITS ---
Exam(s) XR KNEE RT 2V AP,LAT EXAM: XR KNEE RT 2V AP,LAT INDICATION: ANNUAL F/U R TKA. COMPARISON: CR XR STANDING ALIGNMENT from 02/25/2024 CR XR KNEE RT 1V from 02/25/2024 TECHNIQUE: 2D digital imaging was performed. Two views. FINDINGS: Stable alignment of the total knee prosthesis. No abnormal surrounding lucencies. DATA REPOSITORY: RADIATION DOSE DELIVERED:
== END 2025-02-16 16:07 | disposition home or self-care (01) ==
LOC: DIORS 16:06
PROVIDERS: PCP Physician Assistant Medical; Referring Provider Physician Assistant Medical; Visit Provider Student in an Organized Health Care Education/Training Program
DX: Z47.1 Aftercare following joint replacement surgery (principal); Z96.653 Presence of artificial knee joint, bilateral
CPT/HCPCS: 99213; 73560